=== PATIENT | male | born 1940 | race Hispanic/Latino ===

== ENCOUNTER 2017-12-19 10:45 | Day surgery (SDC) | payer OTHER ==
[2017-12-19] MEDS ORDERED: CYCLOPENTOLATE 1% OPTH 2 ML ONE (11:48)
[2017-12-19] MEDS ORDERED: NA CHLORIDE 0.9% 500 ML ONE (11:49)
[2017-12-19] MEDS: PHENYLEPHRINE 10% OPTH 5ML ONE ×3 (13:00→13:10)
[2017-12-19] MEDS: CYCLOPENTOLATE 1% OPTH 2 ML ONE ×3 (13:00→13:10)
[2017-12-19] MEDS: TETRACAINE HCL 0.5% 2ML OPTH ONE ×2 (13:27→14:32)
[2017-12-19] MEDS: BUPIVACAINE 0.25% PF 10 ML VIAL ONE ×2 (13:27→14:33)
[2017-12-19] MEDS: LIDOCAINE 2% MPF 5 ML VIAL ONE ×2 (13:28→14:33)
[2017-12-19] MEDS ORDERED: BALANCED SALT IRRIG PLAIN 500 ML BTL IRR ONE (13:31)
[2017-12-19] MEDS ORDERED: MOXIFLOXACIN HCL 10 DROPS/ML **OR USE OPTH ONE (13:32)
[2017-12-19] MEDS ORDERED: TRYPAN BLUE 0.5 ML SYR OPTH ONE (13:32)
[2017-12-19] MEDS ORDERED: DUOVISC 1 KIT OPTH ONE (13:32)
[2017-12-19] MEDS ORDERED: EPINEPHRINE/PF 1 MG/ML AMP ONE (13:32)
[2017-12-19] MEDS ORDERED: LIDOCAINE 2% INJ, MPF 2 ML 2 ML ONE (14:05)
[2017-12-19] MEDS ORDERED: PROPOFOL 200 MG/20 ML VIAL IV ONE ×3 (14:05→14:54)
[2017-12-19] MEDS ORDERED: NS 0.9% VIAL 10 ML ONE (14:29)
[2017-12-19] MEDS ORDERED: LIDOCAINE 2% MPF 5 ML VIAL ONE (14:32)
--- NOTE | 2017-12-19 15:12 | P.BOP ---
Preoperative diagnosis: Nuclear sclerotic cataract OD Postoperative diagnosis: Same Primary procedure: Phacoemulsification with IOL OD Estimated blood loss: None Anesthesia: Local (Subtenon's infusion with anesthesia for cataract surgery) Complications: None Implants: ZCB00 +23.5 Transferred to: Other (Day surgery) Condition: Good
--- NOTE | 2017-12-19 18:35 | OP ---
Date of Procedure: 12/19/2017 Surgeon: Gloria Machuca MD Anesthesiologist: 1. Jacqueline Romero CRNA. 2. Sea Mtz M.D. Preoperative Diagnosis: Nuclear sclerotic cataract, right eye. Operation Performed: Phacoemulsification with intraocular lens implant, right eye. Anesthesia: Per cataract surgery Complications: None Description Of Procedure: In day surgery, the patient was prepped with Betadine and draped. A conju nctival incision was made in the inferior nasal quadrant with Anshul scissors. A sub-Tenon block c onsisting of a 1:1 mixture of 2% Xylocaine and 0.25% bupivacaine was placed through the conjunctival incision with a blunt cannula. A Honan balloon was placed over the eye and the patient was transferr ed to the operating room. In the operating room the patient was prepped and draped in the usual sterile fashion for ophthalmic surgery. A lid speculum was placed in the right eye. Two paracentesis sites were made superiorly an d inferiorly in the limbal cornea. Viscoat was placed in the anterior chamber and a crescent blade w as used to make a corneal groove and tunnel, and a keratome was used to enter the anterior chamber. Provisc was placed in the anterior chamber and a 360 degree capsulotomy was performed with a cystitom e. The lens was hydrodissected with BSS and rotated freely. The lens was removed with a stop and ch op technique. 10.31 phaco CDE was used to remove the lens. Residual cortex was removed with the irr igation and aspiration. Provisc was placed in the capsular bag. A ZCB00 +23.5 diopter lens was plac ed in the capsular bag without complications. Irrigation and aspiration was used to remove residual viscoelastic. The paracentesis sites were hydrated with BSS. The wound and paracentesis sites were inspected and found to be watertight. Vigamox 0.07 cc was placed intracamerally at the end of the pr ocedure. The eye was irrigated with balanced salt solution. The eye was patched with a soft cotton patch and Bianchi metal shield. The patient was returned to day surgery in good condition. Discharge Instructions: Mr. Sol is discharged to home in good condition and is to follow up with Dr. Machuca in the morning. MILLA/CARLOS ALBERTO Voice ID: [id number] Report ID: [id number]
== END 2017-12-19 15:40 | disposition home or self-care (01) ==
LOC: OR 10:45
PROVIDERS: ATTEND Ophthalmology Retina Specialist
PROC: 08RJ3JZ Replacement of Right Lens with Synthetic Substitute, Percutaneous Approach (ICD-10-PCS; principal; 2017-12-19 12:00)
DX: H25.11 Age-related nuclear cataract, right eye (principal); E11.9 Type 2 diabetes mellitus without complications; I10 Essential (primary) hypertension; E78.00 Pure hypercholesterolemia, unspecified; Z79.82 Long term (current) use of aspirin; Z81.2 Family history of tobacco abuse and dependence
CPT/HCPCS: 66984; 82962; J0171; J3490

== ENCOUNTER 2018-02-06 08:09 | Day surgery (SDC) | payer OTHER ==
[2018-02-06] MEDS ORDERED: CYCLOPENTOLATE 1% OPTH 2 ML ONE (08:28)
[2018-02-06] MEDS ORDERED: BUPIVACAINE 0.25% PF 10 ML VIAL ONE (08:28)
[2018-02-06] MEDS ORDERED: TETRACAINE HCL 0.5% 2ML OPTH ONE (08:29)
[2018-02-06] MEDS ORDERED: PHENYLEPHRINE 10% OPTH 5ML ONE (08:31)
[2018-02-06] MEDS ORDERED: CYCLOPENTOLATE 1% OPTH 2 ML OPTH ONE ×2 (08:45→08:50)
[2018-02-06] MEDS ORDERED: NA CHLORIDE 0.9% 500 ML ONE (08:45)
[2018-02-06] MEDS ORDERED: PHENYLEPHRINE 10% OPTH 5ML OPTH ONE ×2 (08:45→08:50)
[2018-02-06] MEDS ORDERED: LIDOCAINE HCL/PF 3.5% OPTH GEL ONE (08:53)
[2018-02-06] MEDS ORDERED: LIDOCAINE 2% INJ, MPF 2 ML 0 ML ONE (08:59)
[2018-02-06] MEDS ORDERED: EPINEPHRINE/PF 1 MG/ML AMP ONE ×2 (09:03→10:32)
[2018-02-06] MEDS ORDERED: BALANCED SALT IRRIG PLAIN 500 ML BTL IRR ONE (09:03)
[2018-02-06] MEDS ORDERED: NS 0.9% VIAL 10 ML ONE (09:03)
[2018-02-06] MEDS ORDERED: DUOVISC 1 KIT OPTH ONE (09:03)
[2018-02-06] MEDS ORDERED: LIDOCAINE 1% MPF 2 ML AMPULE ONE (09:04)
[2018-02-06] MEDS ORDERED: MOXIFLOXACIN HCL 10 DROPS/ML **OR USE OPTH ONE (09:04)
[2018-02-06] MEDS ORDERED: MIDAZOLAM HCL 2 MG/2 ML INJ ONE (09:41)
[2018-02-06] MEDS ORDERED: FENTANYL CITR 100 MCG/2 ML ONE (09:41)
--- NOTE | 2018-02-06 10:26 | P.BOP ---
Preoperative diagnosis: Nuclear sclerotic cataract OS Postoperative diagnosis: Same Primary procedure: Phacoemulsification with IOL OS Estimated blood loss: None Anesthesia: Local (Topical with anesthesia for cataract surgery) Complications: None Implants: ZCB00 +22.5 Transferred to: Other (Day surgery) Condition: Good
--- NOTE | 2018-02-06 21:36 | OP ---
Surgeon: Gloria Machuca MD Anesthesiologist: 1. Estefani Dixon C.R.N.A. 2. Nish Blanc M.D. Preoperative Diagnosis: Nuclear sclerotic cataract left eye. Operation Performed: Phacoemulsification with intraocular lens implant, left eye. Anesthesia: Per cataract surgery. Complications: None. Description Of Procedure: In the operating room the patient was prepped and draped in the usual ster ile fashion for ophthalmic surgery. A lid speculum was placed in the left eye. Two paracentesis sit es were made superiorly and inferiorly in the limbal cornea. Viscoat was placed in the anterior jemal ariella and a crescent blade was used to make a corneal groove and tunnel, and a keratome was used to ent er the anterior chamber. Provisc was placed in the anterior chamber and a 360 degree capsulotomy was performed with a cystitome. The lens was hydrodissected with BSS and rotated freely. The lens was removed with a stop and chop technique. 5.84 phaco CDE was used to remove the lens. Residual cortex was removed with the irrigation and aspiration. Provisc was placed in the capsular bag. A ZCB00 +2 2.5 diopter lens was placed in the capsular bag without complications. Irrigation and aspiration was used to remove residual viscoelastic. The paracentesis sites were hydrated with BSS. The wound and paracentesis sites were inspected and found to be watertight. Vigamox 0.07 cc was placed intracamer ally at the end of the procedure. The eye was irrigated with balanced salt solution. The eye was pa tched with a soft cotton patch and Bianchi metal shield. The patient was returned to day surgery in good condition. Comments: Akten was placed in the eye in day surgery and irrigated out of the eye with BSS in the OR . Preservative-free 1% lidocaine was placed in the anterior chamber prior to Viscoat. In middle of irrigation and aspiration the pupil became floppy and 1:5000 epinephrine was placed in the anterior c hamber. Discharge Instructions: Mr. Sol is discharged to home in good condition and is to follow up with Dr. Machuca in the morning. MILLA/CARLOS ALBERTO Voice ID: [id number] Report ID: [id number]
== END 2018-02-06 10:52 | disposition home or self-care (01) ==
LOC: OR 08:09
PROVIDERS: ATTEND Ophthalmology Retina Specialist
PROC: 08RK3JZ Replacement of Left Lens with Synthetic Substitute, Percutaneous Approach (ICD-10-PCS; principal; 2018-02-06 09:30)
DX: H25.12 Age-related nuclear cataract, left eye (principal); H25.012 Cortical age-related cataract, left eye; H35.3110 Nonexudative age-related macular degeneration, right eye, stage unspecified; E11.9 Type 2 diabetes mellitus without complications; I10 Essential (primary) hypertension; E78.00 Pure hypercholesterolemia, unspecified; Z79.82 Long term (current) use of aspirin
CPT/HCPCS: 66984; 82962; J0171 ×2; J2001; J3010; J2250; J3490

== ENCOUNTER 2018-03-31 19:49 | Observation (INO) | payer OTHER ==
[2018-03-31 20:56] LABS: Absolute Lymphocytes (CBC) 1.2 K/uL (0.7-4.9); Absolute Neutrophil 6.8 K/uL (1.8-8.0); Basophils % 0.4 % (0-1.3); Eosinophils % 1.6 % (0-4.4); Hematocrit 39.8 % (39.6-49.0); Lymphocytes % 13.4 % (15.3-44.8); MCH 32.5 pg (27.0-35.0); MPV 9.5 fL (7.6-11.3); Monocytes % 10.6 % (3.3-12.3); RBC Red Blood Cell Count 4.14 M/uL (4.33-5.43)
[2018-03-31 21:09] LABS: Albumin 3.6 g/dL (3.4-5.0); Bilirubin Direct 0.1 mg/dL (0-0.2); Bilirubin Total 0.4 mg/dL (0.2-1.0); Potassium 3.5 mmol/L (3.5-5.1); Protein, Total 7.4 g/dL (6.4-8.2)
--- NOTE | 2018-03-31 21:47 | RAD REPORT ---
EXAM DESCRIPTION: CT - Abdomen Pelvis Wo Contrast - 03/31/2018 9:30 pm CLINICAL HISTORY: Abdominal pain /left lower quadrant pain for 3 days COMPARISON: 2016 TECHNIQUE: Computed axial tomography of the abdomen and pelvis was obtained. IV and oral contrast we re not requested. All CT scans are performed using dose optimization technique as appropriate and may include automated exposure control or mA/KV adjustment according to patient size. FINDINGS: The evaluation of solid organs, vessels and bowel is limited secondary to the lack of con trast administration. Fatty infiltration liver seen. Spleen, pancreas, and adrenals appear grossly normal. A 3 millimeter nonobstructing right renal calcu prasad is present. Bilateral renal cysts are seen. An aorto bi-iliac stent has been placed into aortic and left common iliac aneurysms. Diverticula stem from the colon. Moderate to marked stranding is present adjacent to the distal desce nding colon. Marked narrowing of the lumen is seen. An abscess is not seen. Free air is not visualize d Postsurgical changes of inguinal hernia repair is seen. Prostate gland mildly enlarged. IMPRESSION: These findings most likely represent a [id number] distal descending diverticulit is. Close follow-up is needed to exclude the less likely possibility of a perforated colonic neoplasm
[2018-03-31 22:18] LABS: Urine Blood NEGATIVE (NEG); Urine Glucose NEGATIVE (NEG); Urine Protein NEGATIVE (NEG); Urine pH 5.5 (5.0-7.0)
--- NOTE | 2018-03-31 22:49 | EDPHYS ---
Physician Documentation [facility] Name: Jomar Claros Age: 77 yrs Sex: Male : 1940 Arrival Date: 03/31/2018 Time: 19:51 Bed 15 Private MD: ED Physician Jasper Mosqueda HPI: 03/31 21:17 This 77 yrs old Male presents to ER via Ambulatory with complaints of jr8 Abdominal Pain. 21:17 The patient presents with abdominal pain in the left lower quadrant. Onset: The jr8 symptoms/episode began/occurred acutely, yesterday. The symptoms do not radiate. Associated signs and symptoms: none. The symptoms are described as stabbing. Modifying factors: The symptoms are alleviated by nothing, the symptoms are aggravated by nothing. Severity of pain: At its worst the pain was moderate in the emergency department the pain is unchanged. The patient has not experienced similar symptoms in the past. The patient has not recently seen a physician. Historical: - Allergies: 20:11 No Known Allergies; aj1 - Home Meds: 20:11 allopurinol 300 mg Oral tab 1 tab once daily [Active]; aspirin 81 mg Oral TbEC 1 tab aj1 once daily [Active]; fenofibrate Oral [Active]; indapamide Oral [Active]; Metformin Oral [Active]; Pravachol 40 mg Oral tab 1 tab once daily [Active]; - PMHx: 20:11 Diabetes - NIDDM; Gout; High Cholesterol; Hypertension; Kidney stones; aj1 - Immunization history:: Flu vaccine is not up to date. - Social history:: Smoking status: Patient/guardian denies using tobacco. - Ebola Screening: : Patient denies travel to an Ebola-affected area in the 21 days before illness onset. ROS: 21:17 Eyes: Negative for injury, pain, redness, and discharge, ENT: Negative for injury, jr8 pain, and discharge, Neck: Negative for injury, pain, and swelling, Cardiovascular: Negative for chest pain, palpitations, and edema, Respiratory: Negative for shortness of breath, cough, wheezing, and pleuritic chest pain, Back: Negative for injury and pain, MS/Extremity: Negative for injury and deformity, Skin: Negative for injury, rash, and discoloration, Neuro: Negative for headache, weakness, numbness, tingling, and seizure. 21:17 Abdomen/GI: Positive for abdominal pain, Negative for nausea, vomiting, and diarrhea, abdominal distension, anorexia, dysphagia, hematemesis, black/tarry stool, rectal pain, rectal bleeding, bowel incontinence, flatulence. Exam: 21:17 Eyes: Pupils equal round and reactive to light, extra-ocular motions intact. Lids and jr8 lashes normal. Conjunctiva and sclera are non-icteric and not injected. Cornea within normal limits. Periorbital areas with no swelling, redness, or edema. ENT: Nares patent. No nasal discharge, no septal abnormalities noted. Tympanic membranes are normal and external auditory canals are clear. Oropharynx with no redness, swelling, or masses, exudates, or evidence of obstruction, uvula midline. Mucous membranes moist. Neck: Trachea midline, no thyromegaly or masses palpated, and no cervical lymphadenopathy. Supple, full range of motion without nuchal rigidity, or vertebral point tenderness. No Meningismus. Cardiovascular: Regular rate and rhythm with a normal S1 and S2. No gallops, murmurs, or rubs. Normal PMI, no JVD. No pulse deficits. Respiratory: Lungs have equal breath sounds bilaterally, clear to auscultation and percussion. No rales, rhonchi or wheezes noted. No increased work of breathing, no retractions or nasal flaring. Back: No spinal tenderness. No costovertebral tenderness. Full range of motion. Skin: Warm, dry with normal turgor. Normal color with no rashes, no lesions, and no evidence of cellulitis. MS/ Extremity: Pulses equal, no cyanosis. Neurovascular intact. Full, normal range of motion. Neuro: Awake and alert, GCS 15, oriented to person, place, time, and situation. Cranial nerves II-XII grossly intact. Motor strength 5/5 in all extremities. Sensory grossly intact. Cerebellar exam normal. Normal gait. 21:17 Abdomen/GI: Inspection: obese Bowel sounds: active, all quadrants, Palpation: soft, in all quadrants, moderate abdominal tenderness, in the left lower quadrant, mass, is not appreciated, rebound tenderness, is not appreciated, voluntary guarding, is not appreciated, involuntary guarding, is not appreciated, no appreciated organomegaly, Indicators: McBurney's point is not tender, Eddy's sign is negative, Rovsing's sign is negative, Liver: tenderness, is not appreciated. Vital Signs: 20:11 BP 150 / 87; Pulse 95; Resp 20; Temp 98.5; Pulse Ox 95% on R/A; Weight 73.48 kg (R); aj1 Height 5 ft. 6 in. (167.64 cm) (R); Pain 2/10; 21:30 BP 117 / 77; Pulse 84; Resp 18; Pulse Ox 95% on R/A; lp1 22:30 BP 121 / 76; Pulse 83; Resp 18; Pulse Ox 94% on R/A; lp1 23:30 BP 111 / 73; Pulse 78; Resp 16; Pulse Ox 93% on R/A; lp1 04/01 00:30 BP 106 / 77; Pulse 72; Resp 16; Pulse Ox 94% on R/A; lp1 03/31 20:11 Body Mass Index 26.15 (73.48 kg, 167.64 cm) aj1 MDM: 03/31 20:23 Patient medically screened. jr8 22:45 Data reviewed: vital signs, nurses notes, lab test result(s), radiologic studies, CT jr8 scan, and as a result, I will admit patient. Data interpreted: Pulse oximetry: on room air is 95 %. Interpretation: normal. Counseling: I had a detailed discussion with the patient and/or guardian regarding: the historical points, exam findings, and any diagnostic results supporting the discharge/admit diagnosis, lab results, radiology results, the need for further work-up and treatment in the hospital. Physician consultation: Santino Bonilla MD was called at 22:46, was contacted at 22:46, regarding admission, to the medical/surgical unit. consult, patient's condition, and will see patient. 03/31 20:26 Order name: Basic Metabolic Panel; Complete Time: 21:16 8 03/31 20:26 Order name: CBC with Diff; Complete Time: 21:16 8 03/31 20:26 Order name: Creatinine for Radiology; Complete Time: 21:16 jr8 03/31 20:26 Order name: Hepatic Function; Complete Time: 21:16 8 03/31 20:26 Order name: Lipase; Complete Time: 21:16 [facility] 03/31 20:45 Order name: Urine Dipstick--Ancillary (enter results); Complete Time: 22:46 [place] 03/31 20:26 Order name: IV Saline Lock; Complete Time: 20:47 8 03/31 20:26 Order name: Labs collected and sent; Complete Time: 20:48 8 03/31 20:26 Order name: Urine Dipstick-Ancillary (obtain specimen); Complete Time: 20:36 8 03/31 21:14 Order name: Abdomen ; Complete Time: 22:46 EDMS Administered Medications: 23:08 Drug: Flagyl 500 mg Volume: 100 ml; Route: IVPB; Rate: 200 ml/hr; Infused Over: 30 lp1 mins; Site: right forearm; 23:37 Follow up: IV Status: Completed infusion; IV Intake: 100ml lp1 23:31 Drug: Cipro 400 mg Volume: 200 ml; Route: IVPB; Infused Over: 60 mins; Site: right lp1 forearm; 04/01 00:41 Follow up: IV Status: Completed infusion; IV Intake: 200ml lp1 00:15 Drug: NS 0.9% 1000 ml Route: IV; Rate: 75 ml/hr; Site: right forearm; lp1 01:09 Follow up: IV Status: Infusion continued upon admission lp1 Disposition: 01:35 Co-signature as Attending Physician, Jasper Mosqueda MD. enrique Disposition: 03/31/18 22:48 Hospitalization ordered by Santino Bonilla for Inpatient Admission. Preliminary diagnosis is Diverticulitis of large intestine without perforation or abscess without bleeding. - Bed requested for Telemetry/MedSurg (Inpatient). - Status is Inpatient Admission. lp1 - Condition is Stable. - Problem is new. - Symptoms have improved. UTI on Admission? No Signatures: Dispatcher [employer] [facility] Annabella Mahmood RN RN aj1 Chiara Jarvis RN RN kl Lam, Pin, MD MD pkGeeta Flaherty RN RN lp1 Matt Zaman PA PA jr8 Corrections: (The following items were deleted from the chart) 03/31 21:14 20:51 Abdomen Pelvis W Con+CT.RAD.BRZ ordered. [facility] EDSD 04/01 00:48 03/31 22:48 Hospitalization Ordered by Santino Bonilla MD for Inpatient Admission. john Preliminary diagnosis is Diverticulitis of large intestine without perforation or abscess without bleeding. Bed requested for Telemetry/MedSurg (Inpatient). Status is Inpatient Admission. Condition is Stable. Problem is new. Symptoms have improved. UTI on Admission? No. jr8 04/01 01:18 00:48 03/31/2018 22:48 Hospitalization Ordered by Santino Bonilla MD for Inpatient lp1 Admission. Preliminary diagnosis is Diverticulitis of large intestine without perforation or abscess without bleeding. Bed requested for Telemetry/MedSurg (Inpatient). Status is Inpatient Admission. Condition is Stable. Problem is new. Symptoms have improved. UTI on Admission? No. kl
--- NOTE | 2018-03-31 22:49 | ER ---
Nurse's Notes [facility] Name: Jomar Claros Age: 77 yrs Sex: Male : 1940 Arrival Date: 03/31/2018 Time: 19:51 Bed 15 Private MD: Diagnosis: Diverticulitis of large intestine without perforation or abscess without bleeding Presentation: 03/31 20:08 Presenting complaint: Patient states: LLQ abdominal pain for the past 3 days. Denies aj1 N/V/D. Denies fever. Transition of care: patient was not received from another setting of care. Onset of symptoms was March 29, 2018. Risk Assessment: Do you want to hurt yourself or someone else? Patient reports no desire to harm self or others. Initial Sepsis Screen: Does the patient meet any 2 criteria? No. Patient's initial sepsis screen is negative. Does the patient have a suspected source of infection? No. Patient's initial sepsis screen is negative. Care prior to arrival: None. 20:08 Method Of Arrival: Ambulatory aj1 20:08 Acuity: WILLIAM 3 aj1 Triage Assessment: 20:11 General: Appears in no apparent distress. uncomfortable, Behavior is calm, cooperative, aj1 appropriate for age. Pain: Complains of pain in left lower quadrant Pain currently is 2 out of 10 on a pain scale. at worst was 10 out of 10 on a pain scale. Neuro: Level of Consciousness is awake, alert, obeys commands. Cardiovascular: Patient's skin is warm and dry. Respiratory: Airway is patent Respiratory effort is even, unlabored, Respiratory pattern is regular, symmetrical. GI: Reports lower abdominal pain. Historical: - Allergies: 20:11 No Known Allergies; aj1 - Home Meds: 20:11 allopurinol 300 mg Oral tab 1 tab once daily [Active]; aspirin 81 mg Oral TbEC 1 tab aj1 once daily [Active]; fenofibrate Oral [Active]; indapamide Oral [Active]; Metformin Oral [Active]; Pravachol 40 mg Oral tab 1 tab once daily [Active]; - PMHx: 20:11 Diabetes - NIDDM; Gout; High Cholesterol; Hypertension; Kidney stones; aj1 - Immunization history:: Flu vaccine is not up to date. - Social history:: Smoking status: Patient/guardian denies using tobacco. - Ebola Screening: : Patient denies travel to an Ebola-affected area in the 21 days before illness onset. Screenin:19 Abuse screen: Denies threats or abuse. Denies injuries from another. Nutritional lp1 screening: No deficits noted. Tuberculosis screening: No symptoms or risk factors identified. Fall Risk None identified. Assessment: 20:28 General: Appears in no apparent distress. Behavior is appropriate for age. Pain: lp1 Complains of pain in left inguinal area Pain currently is 4 out of 10 on a pain scale. Quality of pain is described as sharp, Aggravated by palpation. Neuro: Level of Consciousness is awake, alert, obeys commands, Oriented to person, place, time, situation. Cardiovascular: Patient's skin is warm and dry. Respiratory: Respiratory effort is even, unlabored. GI: Abdomen is distended, Bowel sounds present X 4 quads. Abdomen is tender to palpation in left lower quadrant. : Denies burning with urination, pain. EENT: No deficits noted. Derm: Skin is normal. Musculoskeletal: Circulation, motion, and sensation intact. 21:30 Reassessment: Patient appears in no apparent distress at this time. No changes from lp1 previously documented assessment. Patient and/or family updated on plan of care and expected duration. Pain level reassessed. 22:30 Reassessment: Patient appears in no apparent distress at this time. Patient resting, lp1 eyes closed, respirations unlabored. 23:43 Reassessment: Dr. Bonilla at bedside to speak with patient. lp1 04/01 00:30 Reassessment: Patient appears in no apparent distress at this time. Patient and/or lp1 family updated on plan of care and expected duration. Pain level reassessed. Patient resting, eyes closed, respirations unlabored; family at bedside. 00:56 Reassessment: Attempted to call report at this time. lp1 Vital Signs: 03/31 20:11 BP 150 / 87; Pulse 95; Resp 20; Temp 98.5; Pulse Ox 95% on R/A; Weight 73.48 kg (R); aj1 Height 5 ft. 6 in. (167.64 cm) (R); Pain 2/10; 21:30 BP 117 / 77; Pulse 84; Resp 18; Pulse Ox 95% on R/A; lp1 22:30 BP 121 / 76; Pulse 83; Resp 18; Pulse Ox 94% on R/A; lp1 23:30 BP 111 / 73; Pulse 78; Resp 16; Pulse Ox 93% on R/A; lp1 04/01 00:30 BP 106 / 77; Pulse 72; Resp 16; Pulse Ox 94% on R/A; lp1 03/31 20:11 Body Mass Index 26.15 (73.48 kg, 167.64 cm) aj1 ED Course: 03/31 19:51 Patient arrived in ED. al2 20:09 Triage completed. aj1 20:11 Arm band placed on Patient placed in waiting room, Patient notified of wait time. aj1 20:19 Geeta Richmond, RN is Primary Nurse. lp1 20:22 Matt Zaman PA is PHCP. jr8 20:22 Jasper Mosqueda MD is Attending Physician. jr8 20:30 Patient has correct armband on for positive identification. Placed in gown. Bed in low lp1 position. Call light in reach. Pulse ox on. NIBP on. 20:45 Inserted saline lock: 20 gauge in right forearm, using aseptic technique. Blood lp1 collected. 20:51 Radiology exam delayed due to lab results not completed at this time. (BUN/Creatinine). sj 21:[address] mw3 21:35 CT completed. Patient tolerated procedure well. Patient moved back from CT. mw3 22:42 Abdomen In Process Unspecified. EDMS 22:48 Santino Bonilla MD is Hospitalizing Provider. jr8 04/01 00:56 No provider procedures requiring assistance completed. Patient admitted, IV remains in lp1 place. Administered Medications: 03/31 23:08 Drug: Flagyl 500 mg Volume: 100 ml; Route: IVPB; Rate: 200 ml/hr; Infused Over: 30 lp1 mins; Site: right forearm; 23:37 Follow up: IV Status: Completed infusion; IV Intake: 100ml lp1 23:31 Drug: Cipro 400 mg Volume: 200 ml; Route: IVPB; Infused Over: 60 mins; Site: right lp1 forearm; 04/01 00:41 Follow up: IV Status: Completed infusion; IV Intake: 200ml lp1 00:15 Drug: NS 0.9% 1000 ml Route: IV; Rate: 75 ml/hr; Site: right forearm; lp1 01:09 Follow up: IV Status: Infusion continued upon admission lp1 Intake: 03/31 23:37 IV: 100ml; Total: 100ml. lp1 04/01 00:41 IV: 200ml; Total: 300ml. lp1 Outcome: 03/31 22:48 Decision to Hospitalize by Provider. jr8 04/01 00:56 Condition: stable lp1 Instructed on the need for admit. 01:08 Admitted to Med/surg via wheelchair, room 207, with chart, Report called to JAYSON Amador lp1 01:18 Patient left the ED. lp1 Signatures: Dispatcher [employer] EDMS Annabella Mahmood RN RN aj1 Hetal Higginbotham Laura, RN RN lp1 Matt Zaman PA PA jr8 Francesca Sharma Michelle mw3
[2018-03-31] MEDS ORDERED: METRONIDAZOLE 500mg IVPB 500 MG/100 ML BAG IV ONE (23:11)
[2018-03-31] MEDS ORDERED: CIPROFLOXACIN 400mg IV 400 MG/200 ML BAG IV ONE (23:11)
[2018-03-31] MEDS ORDERED: NA CHLORIDE 0.9% 1,000 ML ONE (23:46)
--- NOTE | 2018-04-01 00:16 | P.HP ---
Certification for Inpatient Patient admitted to: Inpatient With expected LOS: >2 Midnights Practitioner: I am a practitioner with admitting privileges, knowledge of patient current condition, hospital course, and medical plan of care. Services: Services provided to patient in accordance with Admission requirements found in Title 42 Section 412.3 of the Code of Federal Regulations Patient History Date of Service: 03/31/18 Reason for admission: Acute diverticulitis History of Present Illness: Mg Ebenezer Claros is a 77-year-old male with history of hypertension, dyslipidemia, gout, diabetes mellitus types 2, who start with abdominal pain about 2 days ago. The pain was localized in left lower quadrant, he was constant, with his maximum intensity 10/10. The pain was not radiated. He denied any nausea, vomiting or diarrhea. He also denied fever or chills. He has never had these kind of symptoms in the past. Laboratory work remarkable for normal WBC count. CT abdomen and pelvis consistent with diverticulitis. Also radiologist recommend close follow-up to exclude the less likely possibility of a perforated colonic neoplasm. The patient had multiple colonoscopy done by Dr. Wagner, found polyps negative for malignancy Allergies No Known Allergies Allergy (Verified 02/01/18 17:01) Home medications list reviewed: Yes Home Medications: Allopurinol [Zyloprim*] 300 mg PO DAILY 12/14/17 Aspirin [Aspirin EC 81 MG] 81 mg PO DAILY 12/14/17 Fenofibrate,Micronized [Fenofibrate] 134 mg PO DAILY 12/14/17 Indapamide [Lozol] 2.5 mg PO [id number] 12/14/17 Magnesium Oxide [Magnesium] 400 mg PO DAILY 12/14/17 Metformin HCl [Glucophage] 1,000 mg PO BID 12/14/17 [place]-3/Dha/Epa/Fish Oil [[place] 3 500 Softgel] 2 each PO BID 12/14/17 Pravastatin Sodium 40 mg PO DAILY 12/14/17 Vit A/Vit C/Vit E/Zinc/Copper [Icaps Areds Formula Dr Tablet] 1 each PO DAILY - Past Medical/Surgical History -: Diabetes mellitus types 2 -: Hypertension -: Dyslipidemia -: Gout Past Surgical History: Reviewed- Non-Contributory - Family History Family History: Reviewed- Non-Contributory - Social History Smoking Status: Former smoker Alcohol use: Yes CD- Drugs: No Place of Residence: Home Review of Systems 10-point ROS is otherwise unremarkable Physical Examination - Physical Exam General: Alert, In no apparent distress HEENT: Atraumatic, PERRLA, Mucous membr. moist/pink, EOMI, Sclerae nonicteric Neck: Supple, 2+ carotid pulse no bruit, No LAD, Without JVD or thyroid abnormality Respiratory: Clear to auscultation bilaterally, Normal air movement Cardiovascular: Regular rate/rhythm, Normal S1 S2 Gastrointestinal: Hypoactive, Distended, Tenderness (Left lower quadrant) Musculoskeletal: No tenderness Integumentary: No rashes Neurological: Normal speech, Normal strength at 5/5 x4 extr, Normal tone, Normal affect Lymphatics: No axilla or inguinal lymphadenopathy - Studies Laboratory Data (last 24 hrs) 03/31/18 20:40: Creatinine 1.40 H 03/31/18 20:40: WBC 9.1, Hgb 13.5 L, Hct 39.8, Plt Count 223 03/31/18 20:40: Sodium 137, Potassium 3.5, BUN 22 H, Creatinine 1.40 H, Glucose 220 H, Total Bilirubin 0.4, AST 14 L, ALT 15, Alkaline Phosphatase 71, Lipase 148 Assessment and Plan - Problems (Diagnosis) (1) Diverticulitis Current Visit: Yes Status: Acute (2) Hypertension Current Visit: Yes Status: Acute Qualifiers: Hypertension type: essential hypertension Qualified Code(s): I10 - Essential (primary) hypertension (3) Dyslipidemia Current Visit: Yes Status: Acute (4) Diabetes mellitus type 2 in nonobese Current Visit: Yes Status: Acute - Plan The patient will be admitted to the hospital due to acute diverticulitis. Will start empiric antibiotic treatment, IV fluids, symptomatic medication for pain. Will consult Dr. Ortiz for evaluation recommendation. - Advance Directives Does patient have a Living Will: No Does patient have a Durable POA for Healthcare: No - Code Status/Comfort Care Code Status Assessed: Yes Code Status: Full Code
[2018-04-01] MEDS ORDERED: ONDANSETRON 4 MG/2 ML VIAL IV PRN (01:13)
[2018-04-01] MEDS ORDERED: ACETAMINOPHEN 500 MG TAB PO PRN (01:13)
[2018-04-01] MEDS: METRONIDAZOLE 500mg IVPB 500 MG/100 ML BAG IV SCH ×2 (02:18→18:13)
[2018-04-01] MEDS: NA CHLORIDE 0.9% 1,000 ML IV SCH ×3 (02:18→21:01)
[2018-04-01] MEDS ORDERED: INFLUENZA VACCINE (for 3y+) 0.5 ML DOSE IMVAC ONE (06:00)
[2018-04-01] MEDS ORDERED: PNEUMOCOCCAL VACCINE 0.5 ML IMVAC ONE (06:00)
[2018-04-01 06:24] LABS: Magnesium 1.7 mg/dL (1.8-2.4); Potassium 3.5 mmol/L (3.5-5.1)
[2018-04-01] MEDS: INSULIN -REGULAR HUMAN 50 UNIT/0.5 ML ML SQ SCH ×4 (07:30→21:00)
[2018-04-01] MEDS ORDERED: MORPHINE 2 MG/ML SYR IV PRN (08:36)
[2018-04-01] MEDS ORDERED: HYDROCODONE/APAP 7.5/325 MG TAB PO PRN (09:14)
[2018-04-01] MEDS: CIPROFLOXACIN 400mg IV 400 MG/200 ML BAG IV SCH ×2 (09:31→21:00)
[2018-04-01] MEDS: INDAPAMIDE 1.25 MG TAB PO SCH (12:05)
[2018-04-01] MEDS: ASPIRIN EC 81 MG TAB PO SCH (12:06)
[2018-04-01] MEDS: ALLOPURINOL 300 MG TAB PO SCH (12:06)
--- NOTE | 2018-04-01 13:52 | CON ---
Date of Consultation: 04/01/2018 Brief History Of Present Illness: The patient is a 77-year-old male, who presents with a hi story of hypertension, dyslipidemia, gout, diabetes, who started having abdominal pain approximately 3 days ago. The patient's pain was localized in the left lower quadrant, constant, and 10/10 at its intensity. He has not had similar episodes before in the past. He did not have any radiation. No n ausea or vomiting. No fevers or chills. No similar episodes before in the past. No change in his b owel or bladder habits. He has had loose bowel movements for the most part all of his life. He stat es that since he has been admitted to the hospital, he has noted that the pain is about 50% gone at t his point and is mild currently. Past Medical History: As above, is significant for hypertension, dyslipidemia, gout, diabetes. Past Surgical History: He has had a colonoscopy as of 2 years ago which showed polyps. He is due to get another colonoscopy in June. Allergies: NO KNOWN DRUG ALLERGIES. Medications: Include allopurinol, aspirin, fenofibrate, Lozol, magnesium oxide, Glucophage, omega-3, fish oil, pravastatin, ICAPS AREDS formula tablet. Social History: He is a former smoker. Denies alcohol other than recreationally. Denies any recrea tional drug use. Review of Systems: A 10-point review of systems other than HPI, denies. Physical Examination: General: At the time of examination, his BMI is 26.2. In general, he is awake, alert, and oriented. Vital signs: Blood pressure 121/72, pulse 60, respiratory rate 18, temperature 98.2. HEENT: Normocephalic. Sclerae icteric. Mucous membranes are moist. Oropharynx is clear. Neck: Supple. No JVD. Chest: Normal expansion and excursion. Cardiovascular: Regular rate and rhythm. Pulmonary: Clear to auscultation bilaterally. Abdomen: Soft with mild left lower quadrant tenderness to palpation. No rebound. No guarding. No focal peritonitis. Extremities: No clubbing, cyanosis, or edema. Skin: Warm and dry. Laboratory Data: Laboratory exam reveals a white blood cell count 9.1, hemoglobin 13.5, hematocrit o f 39.8, platelet count is 223, neutrophils 74%. His sodium is 137, potassium 3.5, chloride 106, carb on dioxide 22, BUN 18, creatinine 1.1, glucose is 183, calcium 8.4, magnesium 1.7. His UA was negati ve on admission. He had a CT scan performed of the abdomen and pelvis on 03/31, which is officially r ead as findings most likely represent moderate to marked distal descending diverticulitis. Close fol lowup is needed to exclude the less likely possibility of a perforated colonic neoplasm. Assessment And Plan: This is a 77-year-old male who presents with signs and symptoms of likely diver ticulitis episode of the left colon. 1.IV fluid hydration. 2.Antibiotic coverage. 3.Serial abdominal exams. 4.I recommend starting clear liquid diet, advancing to full liquid diet, continuation with a low res idue diet and bowel regimen as an outpatient. He can be discharged from a surgical standpoint, when he is tolerating p.o. and his pain is improved such that he will not require any pain medication justice g forward. He is also instructed to have close followup with Dr. Wagner for repeat colonoscopy as he i s due in the near future. I have explained the risks, benefits, and alternatives of the above stated plan. The patient agrees to proceed as indicated. ARNOLDO/CARLOS ALBERTO Voice ID: [id number] Report ID: [id number]
--- NOTE | 2018-04-01 14:32 | PN ---
Date of Progress Note: 04/01/2018 History: The patient is seen and examined. Chart reviewed and case discussed with RN and Dr. Daxa west. The patient is still having significant amount of pain in the left lower quadrant. No nausea or vomiting. Review of Systems: Negative except as above. Medications: List reviewed. Physical Examination: Vital Signs: Temperature 97.9, heart rate 63, blood pressure 114/70, respirations 18, OS 97% on room air. General: Awake, alert, oriented x3. Some mild distress. Ill-appearing elderly male. CV: S1, S2. Peripheral pulses present. Respiratory: Moving air well bilaterally. Gastrointestinal: Abdomen is soft. Tenderness to palpation in the left lower quadrant. No rebound. Some voluntary guarding is present. No rigidity and no distention. Bowel sounds positive. Extremities: No clubbing, cyanosis, or edema. Neurologic: Nonfocal. Code Status: Full. Laboratory Data: Sodium 137, potassium 3.5, chloride 106, CO2 22, BUN 18, creatinine 1.1, glucose 18 3, calcium 8.4, magnesium 1.7. CT scan of the abdomen and pelvis shows moderate to marked distal viviana cending diverticulitis. A 3 mm nonobstructing right renal calculus. Nyfuq-mu-[id number] stent placed int o aortic and left common iliac aneurysm. Diverticula. Assessment And Plan: A 77-year-old male with: 1.Acute diverticulitis. The patient having significant amount of pain in the left lower quadrant. We will continue with IV antibiotics. General Surgery is on board. No surgical intervention at this time. CT scan concerning for possible ruptured colonic neoplasm. We will continue to monitor close ly. Continue with pain medications. We will add hydrocodone. The patient does not want morphine. 2.Hypomagnesemia. We will replace and monitor. 3.Acute kidney injury. Creatinine now normalized. We will continue with IV fluids and monitor clos homero. Avoid NSAIDs and nephrotoxins. 4.Essential hypertension, stable. Resume home medications as appropriate. 5.Dyslipidemia. Continue statin. 6.Diabetes mellitus type 2 with hyperglycemia, non-insulin requiring. We will continue Accu-Cheks a nd sliding scale insulin. 7.Aortoiliac aneurysm status post repair. 8.A 3 mm right nephrolithiasis, nonobstructing. No hydronephrosis. Plan: Continue to monitor closely. The patient will be kept on IV antibiotics. Follow up with Surg jeff recommendations. Likely discharge in the next 48-72 hours depending on clinical response. /CARLOS ALBERTO Voice ID: [id number] Report ID: [id number]
[2018-04-01] MEDS ORDERED: ATORVASTATIN 10 MG TAB PO SCH (21:00)
[2018-04-02] MEDS: METRONIDAZOLE 500mg IVPB 500 MG/100 ML BAG IV SCH ×2 (01:12→09:24)
[2018-04-02 05:03] LABS: Absolute Monocytes 0.6 K/uL (0.1-1.3); Absolute Neutrophil 4.5 K/uL (1.8-8.0); Basophils % 0.4 % (0-1.3); Eosinophils % 3.5 % (0-4.4); Hematocrit 36.7 % (39.6-49.0); Lymphocytes % 16.3 % (15.3-44.8); MCH 32.9 pg (27.0-35.0); MCV 96.2 fL (80-100); MPV 9.3 fL (7.6-11.3); RBC Red Blood Cell Count 3.82 M/uL (4.33-5.43)
[2018-04-02 05:17] LABS: Magnesium 1.6 mg/dL (1.8-2.4); Potassium 4.1 mmol/L (3.5-5.1)
[2018-04-02] MEDS ORDERED: MAGNESIUM SULFATE 1 gm IVPB 1 GM/100 ML BAG IV ONE (05:34)
[2018-04-02] MEDS: INDAPAMIDE 1.25 MG TAB PO SCH (06:03)
[2018-04-02] MEDS: INSULIN -REGULAR HUMAN 50 UNIT/0.5 ML ML SQ SCH ×2 (07:30→11:30)
[2018-04-02] MEDS ORDERED: HOME MED 1 EA UNK (Pravastatin Sodium [Pravastatin Sodium] 40 MG) PO SCH (09:00)
[2018-04-02] MEDS ORDERED: HOME MED 1 EA UNK (Fenofibrate,Micronized [Fenofibrate] 134 MG) PO SCH (09:00)
[2018-04-02] MEDS: NA CHLORIDE 0.9% 1,000 ML IV SCH (09:23)
[2018-04-02] MEDS: CIPROFLOXACIN 400mg IV 400 MG/200 ML BAG IV SCH (09:24)
[2018-04-02] MEDS: ASPIRIN EC 81 MG TAB PO SCH (09:24)
[2018-04-02] MEDS: ALLOPURINOL 300 MG TAB PO SCH (09:24)
--- NOTE | 2018-04-02 11:16 | RAD REPORT ---
EXAM DESCRIPTION: RAD - Abdomen Acute Series - 04/02/2018 9:52 am CLINICAL HISTORY: Abdominal pain, abdominal distention COMPARISON: Abdomen January 2016, chest September 2011, CT study March 31, 2018 FINDINGS: No focal lung parenchymal process. Interstitial markings are mildly prominent but not ramin rly different. Heart size and pulmonary vasculature are normal. No pleural effusion, pneumothorax or other acute cardiopulmonary process seen. Bowel gas pattern is nonspecific. No bowel obstruction, free air or other acute findings. Moderate st ool volume present throughout the colon. Aortoiliac endovascular stent graft is in place. Numerous shetty rgical clips are seen in the lower pelvis. Calcification upper pole right kidney is identifiable matc mikhail the CT study. No other suspicious for significant findings. IMPRESSION: No acute chest finding. No significant change from 2011. Moderate stool volume with no acute abdominal or pelvic finding.
--- NOTE | 2018-04-02 11:46 | P.PN ---
Subjective Date of Service: 04/02/18 Chief Complaint: Acute diverticulitis Subjective: Improving (Patient doing well with diet, no pain, not passing gas today.) Physical Examination - Vital Signs Temperature: 97 F Blood Pressure: 128/65 Pulse: 65 Respirations: 18 Pulse Ox (%): 91 - Physical Exam General: Alert, In no apparent distress, Cooperative HEENT: Mucous membr. moist/pink Gastrointestinal: Soft and benign, Non-distended, No ascites, No tenderness, No masses, No rebound Assessment And Plan - Current Problems (Diagnosis) (1) Diverticulitis Current Visit: Yes Status: Acute Plan: - advance diet, if tolerated dc home - follow up with GI - antibiotics @ home for 7 days
--- NOTE | 2018-04-03 06:37 | DS ---
Date of Discharge: 04/02/2018 Consultants: Dr. Ortiz, General Surgery. Admitting Diagnoses: 1.Acute diverticulitis. 2.Essential hypertension. 3.Dyslipidemia. 4.Diabetes mellitus type 2. Discharge Diagnoses: 1.Acute diverticulitis, improving. 2.Hypomagnesemia, replaced. 3.Acute kidney injury, corrected. 4.Essential hypertension, stable. 5.Dyslipidemia, on statin. 6.Diabetes mellitus type 2 with hyperglycemia, non-insulin requiring. 7.Aortoiliac aneurysm status post repair. 8.3 mm right nonobstructing nephrolithiasis. Hospital Course: The patient is a 77-year-old male, comes in with abdominal pain, found to have acut e diverticulitis. The patient has had multiple colonoscopies by Dr. Wagner and has had polyps, negativ e for malignancy. The patient was started on IV fluids and IV antibiotics. CT scan of the abdomen w as also done. He does have history of aortobiiliac stents and was also found to have incidental 3 mm nonobstructing right renal calculus without hydronephrosis. The patient responded well to IV antibi otics. He did not require any IV pain medications. He was slowly started on a liquid diet which he tolerated. The patient was seen by Dr. Ortiz, General Surgery, did well, did have some abdominal d istention. Acute abdominal series did not show any significant change. Did have some moderate stool . The patient was then cleared for discharge. He did not have any further pain. His vital signs we re stable. Blood pressure was stable. The patient was cleared from the Surgery standpoint. The pat ient was then discharged home in a stable condition. Activity: As tolerated. Medications: As per medication reconciliation list. Followup: Follow up with primary care physician in 2 to 3 days. Follow up with surgeon, Dr. Ortiz in 2 weeks. Return to ER for worsening condition. Follow up with GI, Dr. Wagner in 2 weeks. Diet: [place] diet. Physical Examination: General: Awake, alert, oriented x3. No acute distress. Elderly male. CV: S1, S2. No murmurs. Respiratory: Clear to auscultation bilaterally. No wheezing. Gastrointestinal: Abdomen is soft, nontender, nondistended. Positive bowel sounds. Extremities: No clubbing, cyanosis, or edema. Neurologic: Nonfocal. SA/MODL Voice ID: [id number] Report ID: [id number]
== END 2018-04-02 15:26 | disposition home or self-care (01) ==
LOC: ER 19:49 → 2ND 04-01 00:37 → INTOOBSV 04-01 00:37
PROVIDERS: ADMIT Internal Medicine; ATTEND Internal Medicine
DX: K57.92 Diverticulitis of intestine, part unspecified, without perforation or abscess without bleeding (principal); E83.42 Hypomagnesemia; N17.9 Acute kidney failure, unspecified; I10 Essential (primary) hypertension; E78.5 Hyperlipidemia, unspecified; E11.65 Type 2 diabetes mellitus with hyperglycemia; N20.0 Calculus of kidney; Z87.891 Personal history of nicotine dependence; Z23 Encounter for immunization
CPT/HCPCS: 36415 ×2; 74022; 74176; 80048 ×3; 80076; 81003; 82962 ×5; 83690; 83735 ×2; 85025 ×2; 90670; 96361; 96365; 96368; 99285; G0008; G0009; G0378 ×2; J0744 ×4; J3475; J7030 ×4; Q2035

== ENCOUNTER 2018-09-05 11:13 | Day surgery (SDC) | payer OTHER ==
[2018-09-05 11:43] LABS: Absolute Lymphocytes (CBC) 1.1 K/uL (0.7-4.9); Absolute Monocytes 0.6 K/uL (0.1-1.3); Absolute Neutrophil 3.8 K/uL (1.8-8.0); Basophils % 0.6 % (0-1.3); Eosinophils % 5.9 % (0-4.4); Hematocrit 39.7 % (39.6-49.0); MPV 9.3 fL (7.6-11.3); Monocytes % 9.9 % (3.3-12.3); RBC Red Blood Cell Count 4.14 M/uL (4.33-5.43)
--- NOTE | 2018-09-05 11:44 | RAD REPORT ---
EXAM DESCRIPTION: RAD - Chest Pa And Lat (2 Views) - 09/05/2018 11:38 am CLINICAL HISTORY: pre op Chest pain. COMPARISON: Abdomen Acute Series dated 04/02/2018; Abdomen 1 View (KUB) dated 02/04/2016; CHEST PA AND LAT 2 VIEW dated 10/15/2011; CHEST PA AND LAT 2 VIEW dated 03/24/2010 FINDINGS: The lungs are clear. The heart is normal in size. No displaced fractures. IMPRESSION: No acute or concerning finding suspected.
[2018-09-05] MEDS ORDERED: NA CHLORIDE 0.9% 1,000 ML ONE (11:51)
[2018-09-05] MEDS ORDERED: CEFAZOLIN/SWI 1gm 1 GM/10 ML SYR ONE (11:51)
[2018-09-05] MEDS ORDERED: PROPOFOL 200 MG/20 ML VIAL IV ONE (11:53)
[2018-09-05] MEDS ORDERED: FENTANYL CITR 100 MCG/2 ML ONE (11:53)
[2018-09-05] MEDS ORDERED: LIDOCAINE 1% MPF 2 ML AMPULE ONE (11:54)
[2018-09-05 11:57] LABS: Potassium 3.6 mmol/L (3.5-5.1)
--- NOTE | 2018-09-05 12:37 | P.BOP ---
Preoperative diagnosis: infected left chest wall mass 4x3 cm with abscess Postoperative diagnosis: same Primary procedure: Excisional biopsy infected left chest wall mass with abscess drainage Estimated blood loss: <10cc Specimen: pus and mass Findings: infected left chest wall mass with abscess Anesthesia: General Complications: None Drain(s): Other Transferred to: Recovery Room Condition: Good
[2018-09-05] MEDS ORDERED: CODEINE 30MG/APAP 300MG TAB ONE (13:39)
--- NOTE | 2018-09-05 16:28 | EKG ---
Test Date: 2018-09-05 Test Time: 11:41:59 Scenic Artist: REUBEN/S MEASUREMENT RESULTS: Intervals: Rate: 51 [place]: 162 QRSD: 106 QT: 464 QTc: 427 [place]: P: 58 [place]: 162 QRS: -55 T: 22 INTERPRETIVE STATEMENTS: Sinus bradycardia Left axis deviation Cannot rule out Anterior infarct, age undetermined Abnormal ECG No previous ECG available for comparison Electronically Signed On 09-05-18 16:27:32 CDT by Giovanni Pulido
--- NOTE | 2018-09-06 01:13 | DS ---
Date of Discharge: 09/05/2018 Diagnosis: Infected left chest wall mass with abscess drainage. Procedure: Excisional biopsy of left chest wall mass with abscess drainage. Disposition: Home. Activity: As tolerated. No heavy lifting. Followup: Follow up in my office in 1 week; call for appointment on [phone]. Dressing changes incl ude wet-to-dry dressing daily. MARY Voice ID: [id number] Report ID: [id number]
--- NOTE | 2018-09-06 01:13 | OP ---
Date of Procedure: 09/05/2018 Surgeon: Arben Resendiz MD Preoperative Diagnosis: Infected left chest wall 4 x 4 cm with abscess and cellulitis. Postoperative Diagnosis: Infected left chest wall 4 x 4 cm with abscess and cellulitis. Procedure: Excision biopsy of infected left chest wall mass, about 4 x 3 cm with abscess drainage. Anesthesia: General plus local. Specimen: Pus and mass. Findings: Chest wall mass with a multiloculated abscess. Indication: This is the case of an 78-year-old patient, who comes to us with a mass over the chest r egion, tender, draining. He tried to drain that himself with needles; it did not work well, getting worse, bigger, redder, with fluctuance. The patient was seen few hours ago. We asked him the import ance of having do this. He preferred anesthesia too. So, we offered him under anesthesia a chest wa ll subcutaneous mass excision with a drainage of an abscess with benefits, alternatives, and risks in cluding but not limited to infection, bleeding, damage to adjacent structures, anesthesia complicatio n, nonhealing of wound, [place], and even . He also understands this may not relieve any symptoms an d he might need more than one surgical intervention. He understood, signed a consent. His daughter claims she feels very comfortable doing the dressing changes after surgery. Description Of Procedure: The patient was brought to the operating room, placed in supine position. Anesthesia was done without complication. A time-out was called. Chest was prepped and draped in u sual sterile fashion. A wedge incision was made in the skin to include the ulceration of the skin. The mass was taken all the way down to the muscle. The fascia is partially involved but the muscle d oes not seem to be devitalized or involved. The mass was excised which is like component between a c omplex of abscess with inflammation and necrotic tissue, not sure if this is inflammatory mass or a c yst, and I guess pathology is going to have to figure it out. The area was completely clean. Hemost asis was obtained. Local anesthetic applied and then packed with wet-to-dry dressing. The patient t olerated the procedure well. The patient was sent to recovery in stable condition. TELLO/CARLOS ALBERTO Voice ID: [id number] Report ID: [id number]
== END 2018-09-05 14:00 | disposition home or self-care (01) ==
LOC: OR 11:13
PROVIDERS: ATTEND Surgery
PROC: 0JB60ZZ Excision of Chest Subcutaneous Tissue and Fascia, Open Approach (ICD-10-PCS; principal; 2018-09-05 12:30)
DX: L02.213 Cutaneous abscess of chest wall (principal); L03.313 Cellulitis of chest wall; E11.9 Type 2 diabetes mellitus without complications; E78.00 Pure hypercholesterolemia, unspecified; I10 Essential (primary) hypertension; Z79.84 Long term (current) use of oral hypoglycemic drugs; Z79.82 Long term (current) use of aspirin; Z79.899 Other long term (current) drug therapy
CPT/HCPCS: 11406; 93005; 87070; 85025; 80048; 36415; 87205 ×2; 82962; 88304; 87075; 71046; J2704; J3010; J2001; J0690; J7030

== ENCOUNTER 2018-09-09 07:55 | Observation (INO) | payer OTHER ==
[2018-09-09 08:40] LABS: Absolute Lymphocytes (CBC) 0.7 K/uL (0.7-4.9); Absolute Monocytes 0.3 K/uL (0.1-1.3); Absolute Neutrophil 2.6 K/uL (1.8-8.0); Basophils % 0.9 % (0-1.3); Eosinophils % 7.8 % (0-4.4); Hematocrit 39.5 % (39.6-49.0); Lymphocytes % 17.4 % (15.3-44.8); MPV 9.9 fL (7.6-11.3); Monocytes % 8.2 % (3.3-12.3); RBC Red Blood Cell Count 4.11 M/uL (4.33-5.43)
[2018-09-09 08:41] LABS: Protime INR 1.04
[2018-09-09 08:57] LABS: ALT/SGPT 16 U/L (12-78); AST/SGOT 21 U/L (15-37); Albumin 3.8 g/dL (3.4-5.0); Alkaline Phosphatase 63 U/L (45-117); BUN Blood Urea Nitrogen 24 mg/dL (7-18); Bicarbonate 23 mmol/L (21-32); Bilirubin Total 0.4 mg/dL (0.2-1.0); Glucose Level 127 mg/dL (74-106); Magnesium 1.9 mg/dL (1.8-2.4); NT PRO-BNP 236 pg/mL (<450); Potassium 4.1 mmol/L (3.5-5.1); Protein, Total 7.7 g/dL (6.4-8.2); Sodium Level 140 mmol/L (136-145); Troponin (Emerg Dept Use Only) < 0.02 ng/mL (0.0-0.045)
--- NOTE | 2018-09-09 09:32 | ER ---
Nurse's Notes [facility] Name: Jomar Claros Age: 78 yrs Sex: Male : 1940 Arrival Date: 09/09/2018 Time: 07:58 Bed 4 Private MD: Diagnosis: Other chest pain Presentation: 09/09 08:06 Presenting complaint: Patient states: left sided chest pain that started about 10 em minutes ago described as "elephant sitting on chest", was [place] when the pain started, reports shortness of breath, denies N/V or diaphoresis, recently had an abscess removed on left side of chest by Dr. Resendiz on Tuesday, wound clean, packed no redness noted. Transition of care: patient was not received from another setting of care. Onset of symptoms was September 09, 2018 at 07:50. Risk Assessment: Do you want to hurt yourself or someone else? Patient reports no desire to harm self or others. Initial Sepsis Screen: Does the patient meet any 2 criteria? No. Patient's initial sepsis screen is negative. Does the patient have a suspected source of infection? No. Patient's initial sepsis screen is negative. Care prior to arrival: None. 08:06 Method Of Arrival: Wheelchair em 08:07 Acuity: WILLIAM 3 ss Triage Assessment: 08:10 General: Appears uncomfortable, Behavior is calm, cooperative. Pain: Complains of pain em in anterior aspect of left upper chest Pain currently is 3 out of 10 on a pain scale. at worst was 10 out of 10 on a pain scale. Quality of pain is described as pressure, "elephant sitting on chest". Cardiovascular: Capillary refill < 3 seconds Patient's skin is warm and dry. Rhythm is sinus rhythm. 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 - Social history:: Smoking status: Patient/guardian denies using tobacco. - Ebola Screening: : Patient negative for fever greater than or equal to 101.5 degrees Fahrenheit, and additional compatible Ebola Virus Disease symptoms Patient denies exposure to infectious person Patient denies travel to an Ebola-affected area in the 21 days before illness onset No symptoms or risks identified at this time. Screenin:22 Abuse screen: Denies threats or abuse. Denies injuries from another. Nutritional bp screening: No deficits noted. Tuberculosis screening: No symptoms or risk factors identified. Fall Risk None identified. Assessment: 08:20 General: Appears in no apparent distress. comfortable, Behavior is calm, cooperative, bp appropriate for age. Pain: Complains of pain in chest Pain does not radiate. Pain began 30 min ago. Neuro: Level of Consciousness is awake, alert, obeys commands, Oriented to person, place, time, situation, Appropriate for age. Cardiovascular: Rhythm is sinus rhythm. Respiratory: Airway is patent Respiratory effort is even, unlabored, Respiratory pattern is regular, symmetrical. GI: No signs and/or symptoms were reported involving the gastrointestinal system. : No signs and/or symptoms were reported regarding the genitourinary system. EENT: No deficits noted. Derm: No deficits noted. Musculoskeletal: Circulation, motion, and sensation intact. Range of motion: intact in all extremities. 09:17 Reassessment: ALL CURRENT ORDERS COMPLETED, VS STABLE ON MONITOR. bp 09:39 Reassessment: ABNORMAL RHYTHM NOTED ON MONITOR, ATTENDING NOTIFIED. bp Vital Signs: 08:10 BP 152 / 82; Pulse 81; Resp 18; Pulse Ox 100% on R/A; Weight 72.12 kg; Height 5 ft. 6 em in. (167.64 cm); Pain 3/10; 09:15 BP 137 / 91; Pulse 50; Resp 14; Pulse Ox 94% ; bp 10:16 BP 123 / 77; Pulse 59; Resp 15; Pulse Ox 97% ; bp 08:10 Body Mass Index 25.66 (72.12 kg, 167.64 cm) em ED Course: 07:58 Patient arrived in ED. mr 08:00 Brett Tomlinson MD is Attending Physician. ps1 08:07 Tiffani, Giovanny, RN is Primary Nurse. bp 08:07 Triage completed. ss 08:10 Arm band placed on. em 08:22 Patient has correct armband on for positive identification. Placed in gown. Bed in low bp position. Call light in reach. Side rails up X2. Adult w/ patient. classroom monitor on. Pulse ox on. NIBP on. 08:33 Inserted saline lock: 20 gauge in right antecubital area, using aseptic technique. kj1 08:33 Initial lab(s) drawn, by me, sent to lab. kj1 08:58 XRAY Chest (1 view) In Process Unspecified. EDMS 09:31 Donald Contreras MD is Hospitalizing Provider. ps1 10:17 No provider procedures requiring assistance completed. Patient admitted, IV remains in bp place. Patient maintains SpO2 saturation greater than 95% on room air. Administered Medications: No medications were administered Outcome: 09:31 Decision to Hospitalize by Provider. ps1 10:31 Admitted to Med/surg accompanied by tech, family with patient, via wheelchair, room bp 205, with chart. 10:31 Condition: stable 10:31 Instructed on the need for admit. 10:39 Patient left the ED. bp Signatures: Dispatcher [employer] EDIL Yasir Mili Otero, [place], HOT POND OPERATOR HOT POND OPERATOR Marcela Maya RN RN ss Peltier, Brian, JAYSON RN bp Brett Tomlinson MD MD ps1 Kathrin Neal kj1 Corrections: (The following items were deleted from the chart) 08:14 08:06 Presenting complaint: Patient states: l;eft chest pain that started about 10 em minutes ago, was [place] when the pain started, reports shortness of breath, denies N/V or diaphoresis, recently had an abscess removed on left side of chest by Dr. Resendiz on Tuesday, wound clean, packed no redness noted em
--- NOTE | 2018-09-09 09:32 | EDPHYS ---
Physician Documentation [facility] Name: Jomar Claros Age: 78 yrs Sex: Male : 1940 Arrival Date: 09/09/2018 Time: 07:58 Bed 4 Private MD: ED Physician Brett Tomlinson HPI: 09/09 08:06 This 78 yrs old Male presents to ER via Unassigned with complaints of Chest ps1 Pain. 08:06 patient has a recent I\T\D per Martín to left anterior chest just distal from the ps1 nipple. He states that he was at the store and started developing chest pain that he states was different from the pain that he has experienced from the abscess. Described as pressure and heaviness. He has been treating his pain with T3. Did not take this morning. Pain rated as moderate. Not associated with radiation or diaphoresis. . 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 - Social history:: Smoking status: Patient/guardian denies using tobacco. - Ebola Screening: : Patient negative for fever greater than or equal to 101.5 degrees Fahrenheit, and additional compatible Ebola Virus Disease symptoms Patient denies exposure to infectious person Patient denies travel to an Ebola-affected area in the 21 days before illness onset No symptoms or risks identified at this time. ROS: 08:06 Constitutional: Negative for fever, chills, and weight loss, Eyes: Negative for injury, ps1 pain, redness, and discharge, ENT: Negative for injury, pain, and discharge, Respiratory: Negative for shortness of breath, cough, wheezing, and pleuritic chest pain, Abdomen/GI: Negative for abdominal pain, nausea, vomiting, diarrhea, and constipation, Back: Negative for injury and pain, MS/Extremity: Negative for injury and deformity, Neuro: Negative for headache, weakness, numbness, tingling, and seizure. 08:06 Cardiovascular: Positive for chest pain, of the anterior aspect of left upper chest. 08:06 Skin: Positive for abscess, of the anterior aspect of left upper chest. Exam: 08:06 Constitutional: This is a well developed, well nourished patient who is awake, alert, ps1 and in no acute distress. Head/Face: Normocephalic, atraumatic. Eyes: Pupils equal round and reactive to light, extra-ocular motions intact. Lids and lashes normal. Conjunctiva and sclera are non-icteric and not injected. Cardiovascular: Regular rate and rhythm. No gallops, murmurs, or rubs. Normal PMI, no JVD. No pulse deficits. Respiratory: Lungs have equal breath sounds bilaterally, clear to auscultation and percussion. No rales, rhonchi or wheezes noted. No increased work of breathing, no retractions or nasal flaring. Abdomen/GI: Soft, non-tender, with normal bowel sounds. No distension or tympany. No guarding or rebound. No evidence of tenderness throughout. Skin: Warm, dry with normal turgor. Normal color with no rashes, no lesions, and no evidence of cellulitis. MS/ Extremity: Pulses equal, no cyanosis. Neurovascular intact. Full, normal range of motion. Neuro: Awake and alert, GCS 15, oriented to person, place, time, and situation. Cranial nerves II-XII grossly intact. Sensory grossly intact. Psych: Awake, alert, with orientation to person, place and time. Behavior, mood, and affect are within normal limits. 08:06 Chest/axilla: Inspection: patient has an open wound that is packed with gauze. margins appear well, clean, dry and open to air. No obvious signs of infection, small amount of serosanguinous fluid. . Vital Signs: 08:10 BP 152 / 82; Pulse 81; Resp 18; Pulse Ox 100% on R/A; Weight 72.12 kg; Height 5 ft. 6 em in. (167.64 cm); Pain 3/10; 09:15 BP 137 / 91; Pulse 50; Resp 14; Pulse Ox 94% ; bp 10:16 BP 123 / 77; Pulse 59; Resp 15; Pulse Ox 97% ; bp 08:10 Body Mass Index 25.66 (72.12 kg, 167.64 cm) em MDM: 08:14 Patient medically screened. ps1 09:31 Data reviewed: vital signs, nurses notes, lab test result(s), EKG, radiologic studies, ps1 and as a result, I will admit patient. 09/09 08:02 Order name: CBC with Diff; Complete Time: 08:47 ps1 09/09 08:02 Order name: Magnesium; Complete Time: 09:00 ps1 09/09 08:02 Order name: NT PRO-BNP; Complete Time: 09:00 ps1 09/09 08:02 Order name: PT-INR; Complete Time: 08:47 ps1 09/09 08:02 Order name: Troponin (emerg Dept Use Only); Complete Time: 09:00 ps1 09/09 08:02 Order name: CMP; Complete Time: 09:00 ps1 09/09 08:02 Order name: XRAY Chest (1 view) ps1 09/09 08:02 Order name: EKG; Complete Time: 08:03 ps1 09/09 08:02 Order name: Cardiac monitoring; Complete Time: 08:19 ps1 09/09 08:02 Order name: EKG - Nurse/Tech; Complete Time: 08:07 ps1 09/09 08:02 Order name: IV Saline Lock; Complete Time: 08:34 ps1 09/09 08:02 Order name: Labs collected and sent; Complete Time: 08:34 ps1 09/09 08:02 Order name: O2 Per Protocol; Complete Time: 08:07 ps1 09/09 08:02 Order name: O2 Sat Monitoring; Complete Time: 08:07 ps1 EC:02 Rate is 72 beats/min. Rhythm is regular. Left axis deviation noted. MD interval is ps1 normal. QRS interval is normal. QT interval is normal. Q waves are Old. T waves are Normal. No ST changes noted. Clinical impression: LAD with age indeterminate anterior infarct. . Interpreted by me. Administered Medications: No medications were administered Disposition: 09/09/18 09:31 Hospitalization ordered by Donald Contreras for Observation. Preliminary diagnosis is Other chest pain. - Bed requested for Telemetry/MedSurg (observation). - Status is Observation. bp - Condition is Stable. - Problem is new. - Symptoms have improved. UTI on Admission? No Signatures: Dispatcher [employer] EDLA Modesto Otero, HARDWARE DEVELOPER HARDWARE DEVELOPER em Marcela Diez, JAYSON RN ss Giovanny Nixon, Brett Ortiz RN, MD MD ps1 Kasandra Torrez Corrections: (The following items were deleted from the chart) 08:15 08:06 patient has a recent I\T\D per martín to left anterior chest just distal from the ps1 nipple. He states that he was at the store and started developing chest pain that he states was different from the pain that he has experienced from the abscess. He has been treating his pain with T3. Did not take this morning. Pain rated as moderate. Not associated with radiation or diaphoresis. . ps1 09:49 09:31 Hospitalization Ordered by Donald Contreras MD for Observation. Preliminary diagnosis eb is Other chest pain. Bed requested for Telemetry/MedSurg (observation). Status is Observation. Condition is Stable. Problem is new. Symptoms have improved. UTI on Admission? No. ps1 10:11 09:49 09/09/2018 09:31 Hospitalization Ordered by Donald Contreras MD for Observation. ss Preliminary diagnosis is Other chest pain. Bed requested for Telemetry/MedSurg (observation). Status is Observation. Condition is Stable. Problem is new. Symptoms have improved. UTI on Admission? No. eb 10:39 10:11 09/09/2018 09:31 Hospitalization Ordered by Donald Contreras MD for Observation. bp Preliminary diagnosis is Other chest pain. Bed requested for Telemetry/MedSurg (observation). Status is Observation. Condition is Stable. Problem is new. Symptoms have improved. UTI on Admission? No. ss
[2018-09-09] MEDS ORDERED: MORPHINE 2 MG/ML SYR IV PRN (10:50)
[2018-09-09] MEDS ORDERED: NITROGLYCERIN 0.4 MG/TAB SL PRN (10:50)
[2018-09-09] MEDS ORDERED: GLUCAGON 1 MG/VIAL IM PRN (11:00)
[2018-09-09] MEDS ORDERED: D50W 25 GM/50 ML SYRINGE IV PRN (11:00)
--- NOTE | 2018-09-09 11:13 | RAD REPORT ---
EXAM DESCRIPTION: Tenisha Single View09/09/2018 8:58 am CLINICAL HISTORY: Chest pain COMPARISON: September 05, 2018 FINDINGS: The lungs appear clear of acute infiltrate. The heart is normal size IMPRESSION: No acute abnormalities displayed
[2018-09-09] MEDS: INSULIN -REGULAR HUMAN 50 UNIT/0.5 ML ML SQ SCH ×3 (11:30→20:59)
[2018-09-09] MEDS: NA CHLORIDE 0.9% 1,000 ML IV SCH ×2 (12:22→20:58)
--- NOTE | 2018-09-09 12:23 | P.HP ---
Certification for Inpatient Patient admitted to: Observation With expected LOS: <2 Midnights Practitioner: I am a practitioner with admitting privileges, knowledge of patient current condition, hospital course, and medical plan of care. Services: Services provided to patient in accordance with Admission requirements found in Title 42 Section 412.3 of the Code of Federal Regulations Patient History Date of Service: 09/09/18 Reason for admission: Chest pain History of Present Illness: This is an 78-year-old male with history of hypertension, diabetes with a recent I and D and packing for a abscess admitted for chest pain. Per patient , he started experiencing a elephant sitting on his chest like pressure/pain while he was driving the morning of admission. He was going to go eat breakfast , turn eschar in brought himself to the emergency room. He stated that this chest pain was associated with shortness of breath. He rated as 10/10. Denied any radiation of the pain. Denied any nausea rough, vomiting, headache, dizziness, lightheadedness. In the ER, he still had the symptoms, was given pain medications and resolved. he remained otherwise stable in the ER At the time of my exam, patient was alert oriented x3, in no acute distress and symptom-free. He was hemodynamically stable Allergies No Known Allergies Allergy (Verified 09/09/18 10:50) Home medications list reviewed: Yes Home Medications: Aspirin 81 mg PO DAILY 09/09/18 Atorvastatin Calcium [Lipitor] 40 mg PO BEDTIME 09/09/18 Fenofibrate,Micronized [Fenofibrate] 134 mg PO DAILY 09/09/18 Indapamide [Lozol] 2.5 mg PO DAILY 09/09/18 Magnesium Oxide [Magnesium] 400 mg PO DAILY 09/09/18 Metformin HCl [Metformin ER Osmotic] 1,000 mg PO BID 09/09/18 Omega3,5,6,7,9 No.1/[place] Oil [Complete [place] Softgel] 1,000 mg PO BID Smz./Tmp. [Bactrim Ds 800 MG/160 MG] 1 tab PO BID 09/09/18 - Past Medical/Surgical History Has patient received pneumonia vaccine in the past: Yes Diabetic: Yes -: Diabetes mellitus types 2 -: Hypertension -: Dyslipidemia -: Gout -: diverticulitis -: Aneurysm -: Hernia repair -: cataract sx - Family History Father History Unknown: Yes Notes: passed at 81 Mother -: Hypertension, Diabetes, Kidney disease - Social History Smoking Status: Former smoker Alcohol use: Yes CD- Drugs: No Caffeine use: Yes Place of Residence: Home Review of Systems 10-point ROS is otherwise unremarkable Physical Examination - Vital Signs Blood Pressure: 123/77 Pulse: 59 Respirations: 15 - Physical Exam General: Alert, In no apparent distress, Oriented x3 HEENT: Atraumatic, PERRLA, Mucous membr. moist/pink, EOMI, Sclerae nonicteric Neck: Supple, 2+ carotid pulse no bruit, No LAD, Without JVD or thyroid abnormality Respiratory: Clear to auscultation bilaterally, Normal air movement Cardiovascular: Regular rate/rhythm, Normal S1 S2 Gastrointestinal: Normal bowel sounds, No tenderness Musculoskeletal: No tenderness Integumentary: No rashes Neurological: Normal gait, Normal speech, Normal strength at 5/5 x4 extr, Normal tone, Normal affect Lymphatics: No axilla or inguinal lymphadenopathy - Studies Laboratory Data (last 24 hrs) 09/09/18 08:30: PT 12.2, INR 1.04 09/09/18 08:30: Sodium 140, Potassium 4.1, BUN 24 H, Creatinine 1.45 H, Glucose 127 H, Magnesium 1.9, Total Bilirubin 0.4, AST 21, ALT 16, Alkaline Phosphatase 63 09/09/18 08:30: WBC 4.0 L D, Hgb 13.2 L, Hct 39.5 L, Plt Count 248 Assessment and Plan - Problems (Diagnosis) (1) Chest pain Current Visit: Yes Status: Acute (2) Diabetes mellitus type 2 in nonobese Onset Date: 04/03/18 Current Visit: No Status: Acute (3) Dyslipidemia Onset Date: 04/03/18 Current Visit: No Status: Acute (4) Hypertension Onset Date: 04/03/18 Current Visit: No Status: Acute Qualifiers: - Plan Admit to floor with tele Cardiology consult chest pain guidelines Trend troponin Morphine and nitro as needed for pain Provide oxygen per protocol DVT prophylaxis: Aspirin Plavix GI prophylaxis: None Diet: Heart healthy Disposition: Pending cardiology evaluation - Advance Directives Does patient have a Living Will: No Does patient have a Durable POA for Healthcare: No
[2018-09-09 19:20] LABS: Urine Appearance CLEAR; Urine Bilirubin NEGATIVE (NEG); Urine Blood NEGATIVE (NEG); Urine Color YELLOW; Urine Glucose NEGATIVE (NEG); Urine Protein NEGATIVE (NEG); Urine Urobilinogen 0.2 mg/dL (0.2-1.0); Urine pH 6.5 (5.0-7.0)
[2018-09-09 19:21] LABS: Urine Microscopic Reflex NO UMIC
[2018-09-09] MEDS: SMZ./TMP. 800/160 MG TABLET PO SCH (20:58)
[2018-09-09] MEDS: ATORVASTATIN 40 MG TAB PO SCH (20:58)
[2018-09-10 05:26] LABS: Absolute Lymphocytes (CBC) 1.3 K/uL (0.7-4.9); Absolute Monocytes 0.5 K/uL (0.1-1.3); Absolute Neutrophil 2.2 K/uL (1.8-8.0); Basophils % 0.8 % (0-1.3); Eosinophils % 10.4 % (0-4.4); Hematocrit 36.9 % (39.6-49.0); MPV 9.2 fL (7.6-11.3); Monocytes % 10.7 % (3.3-12.3); RBC Red Blood Cell Count 3.82 M/uL (4.33-5.43)
[2018-09-10 05:41] LABS: Albumin 3.3 g/dL (3.4-5.0); Bilirubin Total 0.3 mg/dL (0.2-1.0); Potassium 4.1 mmol/L (3.5-5.1); Protein, Total 6.7 g/dL (6.4-8.2)
[2018-09-10] MEDS: NA CHLORIDE 0.9% 1,000 ML IV SCH ×2 (06:02→18:14)
[2018-09-10] MEDS: INSULIN -REGULAR HUMAN 50 UNIT/0.5 ML ML SQ SCH ×4 (07:30→20:37)
[2018-09-10] MEDS: INDAPAMIDE 1.25 MG TAB PO SCH (08:25)
[2018-09-10] MEDS: FENOFIBRATE 160 MG TAB PO SCH (08:25)
[2018-09-10] MEDS: ASPIRIN EC 81 MG TAB PO SCH (08:26)
[2018-09-10] MEDS: SMZ./TMP. 800/160 MG TABLET PO SCH ×2 (08:26→20:38)
[2018-09-10] MEDS: CLOPIDOGREL 75 MG TABLET PO SCH (08:26)
--- NOTE | 2018-09-10 14:58 | P.PN ---
Subjective Date of Service: 09/10/18 Chief Complaint: Chest pain Subjective: Improving Patient seen and examined at bedside. No family at bedside. Chart reviewed and case discussed with nursing staff. Review of Systems 10-point ROS is otherwise unremarkable Physical Examination - Vital Signs Temperature: 97.4 F Blood Pressure: 123/77 Pulse: 59 Respirations: 15 Pulse Ox (%): 97 - Physical Exam General: Alert, In no apparent distress, Oriented x3 HEENT: Atraumatic, PERRLA, EOMI Neck: Supple, JVD not distended Respiratory: Clear to auscultation bilaterally, Normal air movement Cardiovascular: Regular rate/rhythm, Normal S1 S2 Gastrointestinal: Normal bowel sounds, No tenderness Musculoskeletal: No tenderness Integumentary: No rashes Neurological: Normal speech, Normal tone, Normal affect Lymphatics: No axilla or inguinal lymphadenopathy Assessment And Plan - Current Problems (Diagnosis) (1) Chest pain Current Visit: Yes Status: Acute (2) Diabetes mellitus type 2 in nonobese Onset Date: 04/03/18 Current Visit: No Status: Acute (3) Dyslipidemia Onset Date: 04/03/18 Current Visit: No Status: Acute (4) Hypertension Onset Date: 04/03/18 Current Visit: No Status: Acute Qualifiers: - Plan Cardiology consult, recommendations appreciated Continue chest pain guidelines Trend troponin - negative x3 Morphine and nitro as needed for pain Provide oxygen per protocol He is pending stress test and echocardiogram, which will be done on 09/11. DVT prophylaxis: Aspirin Plavix GI prophylaxis: None Diet: Heart healthy, NPO after midnight Disposition: Pending cardiac testing. If negative, likely discharge home
[2018-09-10] MEDS: ATORVASTATIN 40 MG TAB PO SCH (20:38)
--- NOTE | 2018-09-11 00:12 | CON ---
Date of Consultation: 09/10/2018 Reason For Consultation: Chest pain. History Of Present Illness: Mr. Sol is 78 years old and has a history of diabetes, dyslipidemia, hypertension, gout, and a left kidney aneurysm. Not long ago, he had an incision and drainage of an abscess on his chest wall by Dr. Resendiz. I saw him approximately a year ago where he had cardiac c learance with a normal stress test for cataract surgery. But came in with substernal chest pressure, heaviness that felt like an elephant, lasted about 30 minutes with some nausea but no diaphoresis, s hortness of breath, PND, orthopnea, pedal edema, palpitations, or syncope. His symptoms lasted about 30 minutes. He has already ruled out for an OH. Allergies: NONE. Past Medical History: As stated above. Review of Systems: Negative. Social History: Negative. Family History: Negative. Medications: At home include aspirin, metformin, Bactrim, allopurinol, Lipitor, fenofibrate, Lozol, and magnesium. Physical Examination: General: Mr. Sol is very pleasant, alert and oriented x3. Vital signs: Stable, afebrile. HEENT: Negative. Neck: Supple with no bruit. Chest: Clear. Cardiac: Revealed a regular rhythm and rate. No murmurs, gallops, or rubs. Abdomen: Benign. Extremities: Revealed no clubbing, cyanosis, or edema. Skin: Dry and intact. Neurologic: Nonfocal. Diagnostic Data: Chest x-ray was negative. EKG is nonspecific. Creatinine is 1.33. Troponin is ne gative. Impression And Plan: The patient with many cardiac risk factors for heart disease including age, gen alberta, diabetes, hypertension, dyslipidemia. His symptoms sound worrisome as he described an elephant on his chest and that lasted 30 minutes. However, the EKG and troponin are negative. Nevertheless, I think it would be reasonable to recheck an echocardiogram and a Lexiscan on him before he goes home. Hopefully, this is just a reflux issue. LILY/CARLOS ALBERTO Voice ID: [id number] Report ID: [id number]
[2018-09-11] MEDS: NA CHLORIDE 0.9% 1,000 ML IV SCH ×3 (01:10→12:35)
--- NOTE | 2018-09-11 05:58 | EKG ---
Test Date: 2018-09-09 Test Time: 08:02:24 Obiee Lead Developer: WAQAR MEASUREMENT RESULTS: Intervals: Rate: 72 NM: 162 QRSD: 108 QT: 430 QTc: 470 [place]: P: 41 NM: 162 QRS: -62 T: 67 INTERPRETIVE STATEMENTS: Normal sinus rhythm Left axis deviation Possible Anterior infarct, age undetermined Abnormal ECG Compared to ECG 09/05/2018 11:41:59 Sinus bradycardia no longer present Myocardial infarct finding still present Electronically Signed On 09-11-18 05:57:59 CDT by Giovanni Pulido
[2018-09-11] MEDS: INSULIN -REGULAR HUMAN 50 UNIT/0.5 ML ML SQ SCH ×3 (07:30→16:30)
[2018-09-11] MEDS ORDERED: REGADENOSON 0.4 MG/5 ML SYR IV ONE (08:59)
[2018-09-11] MEDS: INDAPAMIDE 1.25 MG TAB PO SCH (09:03)
[2018-09-11] MEDS: CLOPIDOGREL 75 MG TABLET PO SCH (09:04)
[2018-09-11] MEDS: SMZ./TMP. 800/160 MG TABLET PO SCH (09:04)
[2018-09-11] MEDS: ASPIRIN EC 81 MG TAB PO SCH (09:04)
[2018-09-11] MEDS: FENOFIBRATE 160 MG TAB PO SCH (09:04)
--- NOTE | 2018-09-11 15:06 | RAD REPORT ---
EXAM DESCRIPTION: NM - Rest Stress Cardiac Imaging - 09/11/2018 3:00 pm CLINICAL HISTORY: CP Chest pain. COMPARISON: No comparisons TECHNIQUE: The patient was administered approximately 10mCi of Tc 99m Sestamibi prior to resting SPE CT imaging of the heart. The patient was then administered approximately 30 mCi of Tc 99m Sestamibi f ollowing exercise or pharmacologic stress. Multiplanar SPECT images were reviewed. FINDINGS: No stress induced ischemic defect is seen to suggest stress induced ischemia. No fixed def ect is seen to suggest hibernating myocardium or scarred myocardium. The end diastolic volume is 107 ml, the end systolic volume is 50 ml, and the ejection fraction is 53 %. IMPRESSION: No stress induced ischemia.
--- NOTE | 2018-09-11 16:38 | P.SSS ---
Patient History Date of Service: 09/11/18 Reason for admission: Chest pain History of Present Illness: This is an 78-year-old male with history of hypertension, diabetes with a recent I and D and packing for a abscess admitted for chest pain. Per patient , he started experiencing a elephant sitting on his chest like pressure/pain while he was driving the morning of admission. He was going to go eat breakfast , turn eschar in brought himself to the emergency room. He stated that this chest pain was associated with shortness of breath. He rated as 10/10. Denied any radiation of the pain. Denied any nausea rough, vomiting, headache, dizziness, lightheadedness. In the ER, he still had the symptoms, was given pain medications and resolved. he remained otherwise stable in the ER At the time of my exam, patient was alert oriented x3, in no acute distress and symptom-free. He was hemodynamically stable Allergies No Known Allergies Allergy (Verified 09/09/18 10:50) Home Medications: Aspirin 81 mg PO DAILY 09/09/18 Atorvastatin Calcium [Lipitor] 40 mg PO BEDTIME 09/09/18 Fenofibrate,Micronized [Fenofibrate] 134 mg PO DAILY 09/09/18 Indapamide [Lozol] 2.5 mg PO DAILY 09/09/18 Magnesium Oxide [Magnesium] 400 mg PO DAILY 09/09/18 Metformin HCl [Metformin ER Osmotic] 1,000 mg PO BID 09/09/18 Omega3,5,6,7,9 No.1/[place] Oil [Complete [place] Softgel] 1,000 mg PO BID Smz./Tmp. [Bactrim Ds 800 MG/160 MG*] 1 tab PO BID 09/09/18 - Past Medical/Surgical History Has patient received pneumonia vaccine in the past: Yes Diabetic: Yes -: Diabetes mellitus types 2 -: Hypertension -: Dyslipidemia -: Gout -: diverticulitis -: Aneurysm -: Hernia repair -: cataract sx - Family History Father History Unknown: Yes Notes: passed at 81 Mother -: Hypertension, Diabetes, Kidney disease - Social History Smoking Status: Former smoker Alcohol use: Yes CD- Drugs: No Caffeine use: Yes Place of Residence: Home Review of Systems 10-point ROS is otherwise unremarkable Physical Examination - Vital Signs Temperature: 97.4 F Blood Pressure: 130/68 Pulse: 56 Respirations: 18 Pulse Ox (%): 98 - Physical Exam General: Alert, In no apparent distress, Oriented x3 HEENT: Atraumatic, PERRLA, Mucous membr. moist/pink, EOMI, Sclerae nonicteric Neck: Supple, 2+ carotid pulse no bruit, No LAD, Without JVD or thyroid abnormality Respiratory: Clear to auscultation bilaterally, Normal air movement Cardiovascular: Regular rate/rhythm, Normal S1 S2 Gastrointestinal: Normal bowel sounds, No tenderness Musculoskeletal: No tenderness Integumentary: No rashes Neurological: Normal gait, Normal speech, Normal strength at 5/5 x4 extr, Normal tone, Normal affect Lymphatics: No axilla or inguinal lymphadenopathy - Diagnosis (Problem(s)) (1) Chest pain Current Visit: Yes Status: Acute (2) Diabetes mellitus type 2 in nonobese Onset Date: 04/03/18 Current Visit: No Status: Acute (3) Dyslipidemia Onset Date: 04/03/18 Current Visit: No Status: Acute (4) Hypertension Onset Date: 04/03/18 Current Visit: No Status: Acute Qualifiers: Treatment Summary: Patient was admitted to the floor with tele. Cardiology was consulted. He was started on chest pain guidelines. His troponins remained negative x3. His chest pain resolved, did not return throughout the rest of the stay. He did undergo a stress test, which was negative for any stress-induced ischemia. Ejection fraction on the stress test was noted to be 53%. Echocardiogram was done. He remained otherwise hemodynamically stable. Prior to discharge, he is alert oriented x3, in no acute distress, symptom- free. He denied any chest pain, shortness of breath, nausea, dizziness, headache, vision changes, GI or complaints. He will follow up with his primary care physician in 2-3 days. He will follow up with cardiology in 2 weeks. He will complete his course of Bactrim that was prescribed at previous visit for the chest wall abscess. - Disposition Discharge Date: 09/11/18 Disposition: ROUTINE DISCHARGE Condition: GOOD Consultations: Cardiology Patient Discharge Instructions: Please follow up with your primary care physician in 2-3 days. Please follow up with cardiology in 2 weeks. Information provided to you. Please return to the emergency room for worsening symptoms Diet: AHA Activity: Ad catarina Time Spent Managing Pts Care (In Minutes): 55
--- NOTE | 2018-09-12 08:30 | TREADPHA ---
DX: CHEST PAIN Date of Study: 09/11/2018 Ht: 5 6 Wt: 158 lb 14.4 oz Consulting Physician: CHAPARRITA MEDICATIONS: ASPIRIN, LIPITOR, PLAVIX, DEXTROSE, TRICOR, NOVOLIN-R, GLUCAGEN, LOZOL HISTORY: 78 YEAR OLD MALE HERE WITH CHEST PAIN. HISTORY OF DIABETES, HYPERTENSION, DYSLIPIDEMIA, GOUT, DIVERTICULITIS, ANEURYSM, HERNIA REPAIR, NON SMOKER, NON DRINKER. PHYSICIAL EXAMINATION: RESTING B.P.: 139/76 RESTING H.R.: 54 RESTING EKG: SINUS BRADYCARDIA, LOW VOLTAGE, ANTERIOR MYOCARDIAL INFARCTION. PROTOCOL: LEXISCAN EXERCISE TIME: 3:30 B.P. AT PEAK STRESS: 116/72 IMPRESSION: LEXISCAN INJECTED, FOLLOWED BY CARDIOLITE PER PROTOCOL, SEE NUCLEAR MEDICINE REPORT. NO SUPRAVENTRICULAR TACHYCARDIA, VENTRICULAR TACHYCARDIA, PREMATURE ATRIAL COMPLEXES OR PREMATURE VENTRICULAR COMPLEXES. PATIENT REPORTED NO CHEST PAIN. NON DIAGNOSTIC EKG WITH LEXISCAN STRESS.
--- NOTE | 2018-09-12 08:32 | ECHO ---
HEIGHT: 5 ft 6 in WEIGHT: 158 lb 14.4 oz DATE OF STUDY: 09/11/[address]: Daniel Manjarrez MD 2-DIMENSIONAL: YES M.MODE: YES DOPPLER: YES COLOR FLOW: YES TDS: YES PORTABLE: NO DEFINITY: NO BUBBLE STUDY: NO DIAGNOSIS: CHEST PAIN CARDIAC HISTORY: CATHERIZATION: NO SURGERY: NO PROSTHETIC VALVE: NO PACEMAKER: NO MEASUREMENTS (cm) DIASTOLIC (NORMALS) SYSTOLIC (NORMALS) IVSd 0.9 (0.6-1.2) LA Diam 3.8 (1.9-4.0) LVEF 58% LVIDd 4.7 (3.5-5.7) LVIDs 3.3 (2.0-3.5) %FS 30% LVPWd 1.2 (0.6-1.2) Ao Diam (2.0-3.7) 2 DIMENSIONAL ASSESSMENT: RIGHT ATRIUM: NORMAL LEFT ATRIUM: NORMAL RIGHT VENTRICLE: NORMAL LEFT VENTRICLE: NORMAL TRICUSPID VALVE: NORMAL MITRAL VALVE: NORMAL PULMONIC VALVE: NORMAL AORTIC VALVE: NORMAL PERICARDIAL EFFUSION: NONE AORTIC ROOT: NORMAL LEFT VENTRICULAR WALL MOTION: NORMAL DOPPLER/COLOR FLOW: NORMAL COMMENTS: NORMAL 2D ECHOCARDIOGRAM WITH DOPPLER. TECHNOLOGIST: Ainsley MARTÍNEZ
== END 2018-09-11 17:45 | disposition home or self-care (01) ==
LOC: ER 07:55 → ERHOLD 09:53 → 2ND 10:32
PROVIDERS: ADMIT Family Medicine; ATTEND Family Medicine
DX: R07.9 Chest pain, unspecified (principal); I10 Essential (primary) hypertension; E11.9 Type 2 diabetes mellitus without complications; E78.5 Hyperlipidemia, unspecified; Z79.82 Long term (current) use of aspirin; M10.9 Gout, unspecified
CPT/HCPCS: 93005; 93017; 93306; 85025 ×2; 36415; 83735; 85610; 80061; 82962 ×10; 81003; 84484 ×3; 80053 ×2; 83880; 71045; 94760 ×5; 78452; 99285; J2785; J7030 ×6; A9500; G0378 ×2

== ENCOUNTER 2018-12-26 19:31 | Emergency (ER) | payer OTHER ==
--- NOTE | 2018-12-26 20:33 | RAD REPORT ---
EXAM DESCRIPTION: CT - Thorax Wo Con - 12/26/2018 8:20 pm CLINICAL HISTORY: Fall, left-sided chest and rib pain COMPARISON: None. TECHNIQUE: Axial 5 mm thick images of the chest were obtained without IV contrast. All CT scans are performed using dose optimization technique as appropriate and may include automated exposure control or mA/KV adjustment according to patient size. FINDINGS: No pneumothorax or pulmonary contusion. No mass, infiltrate or acute lung parenchymal proc ess seen. No pleural thickening or pleural effusion. No abnormal mediastinal or hilar masses or lymphadenopathy seen. Ascending aorta is 4.2 cm in diamete r. Aortic calcifications are present without displacement. Coronary artery calcifications are present . No abnormal pericardial thickening or effusion. Assessment is limited in the absence of IV contrast . No chest wall mass or abnormal axillary lymphadenopathy. Degenerative changes are present at both shoulder joints which are only partially imaged on this stud y. Nondisplaced fracture of the lateral left eighth rib seen. No pathologic component. Adjacent ninth rib is not fractured. The entirety of the ribcage is not seen on the CT chest study. IMPRESSION: Nondisplaced lateral left eighth rib fracture. No pneumothorax, pulmonary contusion or hemothorax.
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
--- NOTE | 2018-12-26 21:18 | EDPHYS ---
Physician Documentation [facility] Name: Jomar Claros Age: 78 yrs Sex: Male : 1940 Arrival Date: 12/26/2018 Time: 19:37 Bed 16 Private MD: ED Physician Brennan Loya HPI: 12/27 06:35 This 78 yrs old Male presents to ER via Ambulatory with complaints of Fall tw4 Injury. 06:35 Details of fall: The patient fell from an upright position, while standing, and struck tw4 a concrete surface. Onset: The symptoms/episode began/occurred today. Associated injuries: The patient sustained injury to the chest, specifically the diaphragm, contusion. Severity of symptoms: At their worst the symptoms were mild, in the emergency department the symptoms are unchanged. The patient has not experienced similar symptoms in the past. 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 - Social history:: Smoking status: Patient/guardian denies using tobacco. - Ebola Screening: : No symptoms or risks identified at this time. ROS: 12/27 06:35 Constitutional: Negative for fever, chills, and weight loss, Eyes: Negative for injury, tw4 pain, redness, and discharge, Respiratory: Negative for shortness of breath, cough, wheezing, and pleuritic chest pain, Abdomen/GI: Negative for abdominal pain, nausea, vomiting, diarrhea, and constipation, : Negative for injury, bleeding, discharge, and swelling, MS/Extremity: Negative for injury and deformity. Cardiovascular: Positive for chest pain, Negative for edema, orthopnea, palpitations, paroxysmal nocturnal dyspnea. Exam: 06:35 Constitutional: This is a well developed, well nourished patient who is awake, alert, tw4 and in no acute distress. Head/Face: Normocephalic, atraumatic. Cardiovascular: Regular rate and rhythm with a normal S1 and S2. No gallops, murmurs, or rubs. Normal PMI, no JVD. No pulse deficits. Respiratory: Lungs have equal breath sounds bilaterally, clear to auscultation and percussion. No rales, rhonchi or wheezes noted. No increased work of breathing, no retractions or nasal flaring. Abdomen/GI: Soft, non-tender, with normal bowel sounds. No distension or tympany. No guarding or rebound. No evidence of tenderness throughout. Back: No spinal tenderness. No costovertebral tenderness. Full range of motion. MS/ Extremity: Pulses equal, no cyanosis. Neurovascular intact. Full, normal range of motion. Neuro: Awake and alert, GCS 15, oriented to person, place, time, and situation. Cranial nerves II-XII grossly intact. Motor strength 5/5 in all extremities. Sensory grossly intact. Cerebellar exam normal. Normal gait. 06:35 Chest/axilla: Inspection: no acute changes, Palpation: tenderness, of the diaphragm, that totally reproduces the patient's complaints. Vital Signs: 12/26 19:48 BP 155 / 85; Pulse 60; Resp 18; Temp 98; Pulse Ox 100% ; Weight 72.57 kg; Height 5 ft. ea 6 in. (167.64 cm); Pain 7/10; 20:02 BP 146 / 91; Pulse 59; Resp 17; Pulse Ox 97% on R/A; rr5 21:15 BP 138 / 82; Pulse 84; Resp 18; Pulse Ox 99% on R/A; rr5 19:48 Body Mass Index 25.82 (72.57 kg, 167.64 cm) ea MDM: 19:39 Patient medically screened. tw4 12/27 06:41 Differential diagnosis: closed head injury. Data reviewed: vital signs, nurses notes. tw4 Data interpreted: monitoring manager: rhythm is normal sinus rhythm. Test interpretation: by ED physician or midlevel provider:. Counseling: I had a detailed discussion with the patient and/or guardian regarding: the historical points, exam findings, and any diagnostic results supporting the discharge/admit diagnosis. Special discussion: Based on the patient's history, exam, and Dx evaluation, there is no indication for emergent intervention or inpatient Tx. It is understood by the patient/guardian that if the Sx's persist or worsen they need to return immediately for re-evaluation. I discussed with the patient/guardian in detail that at this point there is no indication for admission to the hospital. It is understood, however, that if the symptoms persist or worsen the patient needs to return immediately for re-evaluation. 12/26 19:59 Order name: CT Chest Wo Con; Complete Time: 20:55 tw4 Administered Medications: No medications were administered Disposition: 12/26/18 21:16 Discharged to Home. Impression: Fracture of one rib, left side. - Condition is Stable. - Discharge Instructions: Rib Fracture. - Prescriptions for Tylenol- Codeine #3 300-30 mg Oral Tablet - take 2 tablet by ORAL route every 6 hours As needed; 6 tablet. - Medication Reconciliation Form, Thank You Letter, Antibiotic Education, Prescription Opioid Use form. - Follow up: Private Physician; When: Upon discharge from the Emergency Department; Reason: If symptoms return, Recheck today's complaints, Continuance of care. - Problem is new. - Symptoms have improved. Signatures: Dispatcher [employer] EDMS Marjorie Ness RN RN Brennan Gunter MD MD tw4 Timmy Gilliland RN RN rr5 Corrections: (The following items were deleted from the chart) 12/26 21:31 21:16 12/26/2018 21:16 Discharged to Home. Impression: Fracture of one rib, left side. rr5 Condition is Stable. Forms are Medication Reconciliation Form, Thank You Letter, Antibiotic Education, Prescription Opioid Use. Follow up: Private Physician; When: Upon discharge from the Emergency Department; Reason: If symptoms return, Recheck today's complaints, Continuance of care. Problem is new. Symptoms have improved. tw4
== END 2018-12-26 21:31 | disposition home or self-care (01) ==
LOC: ER 19:31
DX: S22.32XA Fracture of one rib, left side, initial encounter for closed fracture (principal); W18.30XA Fall on same level, unspecified, initial encounter; E78.00 Pure hypercholesterolemia, unspecified; I10 Essential (primary) hypertension; E11.9 Type 2 diabetes mellitus without complications; M10.00 Idiopathic gout, unspecified site
CPT/HCPCS: 71250; 99283

== ENCOUNTER 2019-03-12 19:15 | Emergency (ER) | payer OTHER ==
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
[2019-03-12 22:25] VITALS: TEMP 98.2
[2019-03-12 22:26] VITALS: BP 138/76; O2SAT 98
== END 2019-03-12 21:19 | disposition home or self-care (01) ==
LOC: ER 19:15
DX: G44.319 Acute post-traumatic headache, not intractable (principal); V53.5XXA Driver of pick-up truck or van injured in collision with car, pick-up truck or van in traffic accident, initial encounter; Y93.89 Activity, other specified; Y92.410 Unspecified street and highway as the place of occurrence of the external cause; E11.9 Type 2 diabetes mellitus without complications; E78.00 Pure hypercholesterolemia, unspecified; I10 Essential (primary) hypertension
CPT/HCPCS: 70450; 72125; 99284

== ENCOUNTER 2023-01-17 09:14 | Day surgery (SDC) | payer MEDICARE, OTHER ==
[2023-01-14 15:47] LABS: Absolute Lymphocytes (CBC) 1.7 K/uL (0.7-4.9); Hematocrit 37.1 % (39.6-49.0); Lymphocytes % 24.6 % (15.3-44.8); MCV 97.1 fL (80-100); MPV 9.1 fL (7.6-11.3); Platelets 152 thou/uL (152-406); RBC Red Blood Cell Count 3.82 M/uL (4.33-5.43)
[2023-01-14 15:58] LABS: Potassium 4.5 mEq/L (3.5-5.1)
--- NOTE | 2023-01-14 19:17 | RAD REPORT ---
EXAM DESCRIPTION: RAD - Chest Pa And Lat (2 Views) - 01/14/2023 3:56 pm CLINICAL HISTORY: Pre op pending umbilical hernia repair. Hypertension COMPARISON: Chest Pa And Lat (2 Views) dated 06/08/2019; Chest Single View dated 09/09/2018; Chest Pa And Lat (2 Views) dated 09/05/2018; Abdomen Acute Series dated 04/02/2018 TECHNIQUE: PA and lateral views of the chest were obtained. FINDINGS: The lungs are clear. Heart size is normal and central vasculature is within normal limits. No pleural effusion or pneumothorax seen. No acute bony finding noted. IMPRESSION: No acute cardiopulmonary process.
[2023-01-17] MEDS ORDERED: NA CHLORIDE 0.9% 1,000 ML ONE (09:47)
[2023-01-17] MEDS: CEFAZOLIN SODIUM 1 GM/VIAL ONE ×2 (10:34→10:58)
[2023-01-17] MEDS ORDERED: propofoL 200 MG/20 ML VIAL IV ONE (10:38)
[2023-01-17] MEDS ORDERED: FENTANYL CITR 100 MCG/2 ML ONE (10:38)
[2023-01-17] MEDS ORDERED: LIDOCAINE 1% MPF 2 ML AMPULE ONE (10:39)
[2023-01-17] MEDS ORDERED: ONDANSETRON 4 MG/2 ML VIAL ONE (10:39)
[2023-01-17] MEDS ORDERED: ROCURONIUM 50 MG/5 ML VIAL IV ONE (10:39)
--- NOTE | 2023-01-17 11:33 | P.BOP ---
Preoperative diagnosis: umbilical hernia, umbilical abscess Postoperative diagnosis: same Primary procedure: Open repair of tender incarcerated umbilical hernia 3x3cm Secondary procedure: I & D abdominal wall abscess Rope Making Machine Operator: TELMA BONILLA (BRICK MAKER) Estimated blood loss: <10cc Specimen: sutures, abscess culture, sac Findings: see dicta Anesthesia: General Complications: None Transferred to: Recovery Room Condition: Good
[2023-01-17] MEDS ORDERED: HYDROCODONE/APAP 7.5/325 MG TAB ONE (12:48)
[2023-01-17 13:33] VITALS: O2SAT 98
[2023-01-17 13:37] VITALS: BP 110/85; TEMP 97
--- NOTE | 2023-01-17 13:57 | OP ---
Date of Procedure: 01/17/2023 Surgeon: Arben Resendiz MD Straw Hat Plunger Operator: Madison Duncan. Preoperative Diagnoses: Umbilical hernia, umbilical abscess, umbilical cellulitis. Postoperative Diagnoses: Umbilical hernia, umbilical abscess, umbilical cellulitis. Procedures: Open repair of tender incarcerated umbilical hernia 3 x 3 cm and an incision and drainag e of abdominal wall abscess, removal of sutures. Estimated Blood Loss: Less than 10 mL. Specimen: Previous sutures. The patient also has culture of an abscess in that region and also yaron ia sac. Findings: The patient has a combination of . In that area, the patient has some Prolene st itches before. There is a suture granuloma with an abscess associated with the umbilical hernia. Th e patient has history of appendectomy in the past as I can see, but I do not have any recording of pr evious fix for any mesh. Complications: None. Indications: This is the case of an 82-year-old patient, who comes to us with redness, tenderness, u nable to reduce the hernia that he has in the umbilical region. He took antibiotics, not improved, s till red and we offered him repair of umbilical hernia, possible drainage of an abscess with benefits , alternatives, and risks including, but not limited to infection, bleeding, damage to adjacent struc tures, anesthesia complication, nonhealing wound, UT, and even . He also understands this may n ot relieve any symptoms. He might need more than one surgical intervention. He may require wound ca re. He signed a consent. Procedure In Detail: The patient was brought to the operating room, placed in supine position. Anes thesia was done without complication. Abdominal area was prepped and draped in the usual sterile fas hion. Local anesthesia was applied followed by sharp incision of the skin. In incision, the patient has a lump also on the skin where the patient claims it was draining at one point. No GI content. That was removed with the specimen and we noted a hernia sac that was removed with the specimen. We also noticed previous sutures in that region that were removed and there was a foreign body and we fo und the umbilical hernia with omentum placed in that area before that. Underneath the skin, we notic ed the patient has purulent discharge consistent with an abscess, so that was cultured and irrigated. The hernia sac was repaired primarily. The fascial edges were cleaned. The omentum in that region was carefully dissected and ligated and made sure there was no bleeding after retraction. Area was irrigated. Fascial edges were approximated with #1 Prolene in a [id number]-cctac fashion multiple nichol es. The area was irrigated and the skin was left to close by secondary intention with packing iodofo rm quarter of an inch. The patient tolerated the procedure well. The patient sent to recovery in st able condition. TELLO/CARLOS ALBERTO Voice ID: [id number] Report ID: [id number]
--- NOTE | 2023-01-17 14:02 | DS ---
Diagnoses: Umbilical hernia, umbilical abscess. Procedures: Open repair of tender incarcerated umbilical hernia and incision and drainage of abdomin al wall abscess. Disposition: Home. Activity: As tolerated. No heavy lifting. Plan: Keep the dressing intact for the next 48 hours, then show in my office and I will help to do d ressing changes. Medications: Previously called. TELLO/CARLOS ALBERTO Voice ID: [id number] Report ID: [id number]
--- NOTE | 2023-01-17 18:06 | EKG ---
Test Date: 2023-01-14 Test Time: 15:28:41 Analog Design Engineer: HARIS MEASUREMENT RESULTS: Intervals: Rate: 60 MD: 176 QRSD: 106 QT: 428 QTc: 428 [place]: P: 37 MD: 176 QRS: -61 T: 41 INTERPRETIVE STATEMENTS: Normal sinus rhythm Left axis deviation Low voltage QRS Incomplete right bundle branch block Possible Anterolateral infarct, age undetermined Abnormal ECG Compared to ECG 09/09/2018 08:02:24 Low QRS voltage now present Incomplete right bundle-branch block now present Myocardial infarct finding still present Electronically Signed On 01-17-23 17:59:22 CDT by Leopoldo Saravia
== END 2023-01-17 13:00 | disposition home or self-care (01) ==
LOC: OR 09:14
PROVIDERS: ATTEND Surgery
PROC: 0WJF0ZZ Inspection of Abdominal Wall, Open Approach (ICD-10-PCS; 2023-01-17)
PROC: 0WCG0ZZ Extirpation of Matter from Peritoneal Cavity, Open Approach (ICD-10-PCS; 2023-01-17)
PROC: 0WQF0ZZ Repair Abdominal Wall, Open Approach (ICD-10-PCS; principal; 2023-01-17 11:30)
DX: K42.9 Umbilical hernia without obstruction or gangrene (principal); L02.216 Cutaneous abscess of umbilicus; L03.316 Cellulitis of umbilicus; M79.5 Residual foreign body in soft tissue
CPT/HCPCS: 49594; 10060; 93005; 87070; 85025; 80048; 36415; 87205; 82947 ×2; 88302; 87075; 71046; 49999; J2704; J3010; J2405; J7030; J0690